=== PATIENT | female | born 1940 | race Caucasian/White ===

== ENCOUNTER 2016-09-17 12:08 | Inpatient (IN) | payer MEDICARE ==
[~2016-09-17] VITALS: Ht 165.1 cm; Wt 85.0 kg
[~2016-09-17 12:08] MED LIST: ASPI-891 PO; LEVO150T11 PO; LOSA50TA37 PO; METO50TA5 PO; MIRT15 PO
[2016-09-17] MEDS ORDERED: CARV3 PO (12:16)
[2016-09-17 13:08] LABS: HEMATOCRIT 48.1 % (36-46); HEMOGLOBIN 16.2 g/dL (12.0-16.0); MEAN CORPUSCULAR HEMOGLOBIN 31.2 pg (26.0-34.0); MEAN CORPUSCULAR HGB CONC 33.6 G/dL (31.0-37.0); MEAN CORPUSCULAR VOLUME 93 fL (80-100); PLATELET COUNT (AUTO) 270 K/uL (150-450); RED BLOOD CELL COUNT(AUTO) 5.18 MIL/uL (4.00-5.20); RED CELL DISTRIBUTION WIDTH 15.4 % (11.5-14.5); WHITE BLOOD COUNT (AUTO) 16.4 K/uL (4.5-11.0)
[2016-09-17 13:09] LABS: CALCIUM, TOTAL 9.6 mg/dL (8.8-10.5); CREATININE 1.8 mg/dL (0.60-1.30); POTASSIUM 4.8 mmol/L (3.5-5.1)
[2016-09-17 13:15] LABS: ALBUMIN 3.3 g/dL (3.4-5.0); BILIRUBIN,TOTAL 0.5 mg/dL (0.1-1.0); TOTAL PROTEIN, SERUM 7.7 g/dL (6.4-8.2)
[2016-09-17] MEDS ORDERED: SODIUM CHLORIDE 0.9% 1,000 ML IV ONE ×2 (13:15→14:15)
[2016-09-17 13:28] LABS: BAND NEUTROPHILS % (MANUAL) 12 % (1-5); LYMPHOCYTES % (MANUAL) 14 % (22-44); TOTAL CELLS COUNTED 100
[2016-09-17 14:03] LABS: CREATINE KINASE MB 107.5 ng/mL (0-5)
[2016-09-17] MEDS ORDERED: 0.9% SODIUM CHLORIDE 10 ML SYRINGE IVP PRN ×2 (15:15→19:30)
[2016-09-17] MEDS ORDERED: ONDANSETRON HCL 4 MG/2 ML VIAL IVP PRN ×2 (15:15→19:30)
[2016-09-17] MEDS ORDERED: ACETAMINOPHEN 325 MG TABLET PO PRN (15:15)
[2016-09-17 15:30] LABS: GLUCOSE,POINT OF CARE 108 MG/DL (70-110)
[2016-09-17 15:45] LABS: APPEARANCE,URINE TURBID (CLEAR); GLUCOSE, URINE (UA) NEGATIVE (NEGATIVE); KETONES,URINE TRACE mg/dL (NEGATIVE); LEUKOCYTE ESTERASE ,URINE LARGE (NEGATIVE); OCCULT BLOOD,URINE LARGE (NEGATIVE); PH,URINE 5.5 (5.0-8.0); PROTEIN,URINE SEE CONFIRM (NEGATIVE)
[2016-09-17 15:53] LABS: SULFOSALICYLIC ACID,URINE 1+ (Negative)
[2016-09-17 15:56] LABS: SQUAMOUS EPITHELIAL CELL,UR Few /LPF (None Seen)
[2016-09-17 15:57] LABS: RBC,URINE 26-50 /HPF (0-2); WBC,URINE >100 /HPF (0-5)
[2016-09-17] MEDS ORDERED: CefTRIAXone 1 GM/DEXTROSE 50 ML IV ONE (16:15)
[2016-09-17 17:20] VITALS: BP 121/67
[2016-09-17] MEDS ORDERED: PNEUMOCOCCAL VACCINE POLYVALENT 0.5 ML VIAL [PPSV23] IM ONE (19:00)
[2016-09-17] MEDS ORDERED: INFLUENZA VIRUS VACCINE QVS 2016-17 (3YR+)/PF 60 MCG/0.5 ML SYRINGE IM ONE (19:00)
[2016-09-17 19:41] VITALS: BP 136/67
[2016-09-17] MEDS: LOSARTAN POTASSIUM 50 MG TABLET PO SCH (20:31)
[2016-09-17] MEDS: OxyCODONE HCL/ACETAMINOPHEN 5-325 MG TABLET PO PRN (20:31)
[2016-09-17] MEDS: ASPIRIN 325 MG EC TABLET PO SCH (20:31)
[2016-09-17] MEDS: DOCUSATE SODIUM 100 MG CAPSULE PO SCH (20:31)
[2016-09-17] MEDS: CARVEDILOL 3.125 MG TABLET PO SCH (20:31)
[2016-09-17] MEDS: PANTOPRAZOLE SODIUM 40 MG/VIAL IVP SCH (20:31)
[2016-09-17] MEDS: SODIUM CHLORIDE 0.9% 1,000 ML IV SCH (20:32)
[2016-09-17] MEDS: METOPROLOL TARTRATE 50 MG TABLET PO SCH (20:32)
[2016-09-17] MEDS: CefTRIAXone 1 GM/DEXTROSE 50 ML IV SCH (20:41)
[2016-09-17 23:20] VITALS: BP 105/52
[2016-09-18] MEDS: SODIUM CHLORIDE 0.9% 1,000 ML IV SCH ×2 (03:00→15:52)
[2016-09-18 04:27] VITALS: BP 127/52
[2016-09-18] MEDS: LEVOTHYROXINE SODIUM 150 MCG TABLET PO SCH (06:18)
[2016-09-18 06:33] LABS: BASOPHILS % (AUTO) 0.2 % (0.0-2.0); EOSINOPHILS % (AUTO) 0.9 % (1.0-6.0); HEMATOCRIT 41.8 % (36-46); HEMOGLOBIN 14.1 g/dL (12.0-16.0); LYMPHOCYTES # (AUTO) 1.4 K/uL (1.0-4.8); MEAN CORPUSCULAR HEMOGLOBIN 31.4 pg (26.0-34.0); MEAN CORPUSCULAR HGB CONC 33.7 G/dL (31.0-37.0); MEAN CORPUSCULAR VOLUME 93 fL (80-100); MONOCYTES % (AUTO) 7.1 % (2.0-9.0); NEUTROPHILS # (AUTO) 11.1 K/uL (1.8-7.7); NEUTROPHILS % (AUTO) 81.8 % (40.0-70.0); PLATELET COUNT (AUTO) 240 K/uL (150-450); RED BLOOD CELL COUNT(AUTO) 4.48 MIL/uL (4.00-5.20); WHITE BLOOD COUNT (AUTO) 13.6 K/uL (4.5-11.0)
[2016-09-18 07:55] LABS: CALCIUM, TOTAL 8.5 mg/dL (8.8-10.5); CREATINE KINASE MB 29.7 ng/mL (0-5); CREATININE 1.65 mg/dL (0.60-1.30); POTASSIUM 4.4 mmol/L (3.5-5.1)
[2016-09-18 08:10] VITALS: BP 133/55
[2016-09-18] MEDS: METOPROLOL TARTRATE 50 MG TABLET PO SCH (09:02)
[2016-09-18] MEDS: CARVEDILOL 3.125 MG TABLET PO SCH ×2 (09:02→20:34)
[2016-09-18] MEDS: LOSARTAN POTASSIUM 50 MG TABLET PO SCH (09:03)
[2016-09-18] MEDS: DOCUSATE SODIUM 100 MG CAPSULE PO SCH ×2 (09:03→20:34)
[2016-09-18] MEDS: OxyCODONE HCL/ACETAMINOPHEN 5-325 MG TABLET PO PRN ×2 (09:03→20:34)
[2016-09-18] MEDS: ASPIRIN 325 MG EC TABLET PO SCH (09:03)
[2016-09-18] MEDS: PANTOPRAZOLE SODIUM 40 MG/VIAL IVP SCH (09:03)
[2016-09-18 11:17] VITALS: BP 117/59
[2016-09-18 15:34] VITALS: BP_SYST 149; BP_DIAS 64; BP_DIAS 99
[2016-09-18 20:21] VITALS: BP 140/84
[2016-09-18] MEDS: CefTRIAXone 1 GM/DEXTROSE 50 ML IV SCH (20:33)
[2016-09-18 23:41] VITALS: BP 142/74
[2016-09-19] MEDS: SODIUM CHLORIDE 0.9% 1,000 ML IV SCH ×2 (01:52→12:33)
[2016-09-19 04:43] VITALS: BP 138/78
[2016-09-19] MEDS: LEVOTHYROXINE SODIUM 150 MCG TABLET PO SCH (05:45)
[2016-09-19 07:04] VITALS: BP 143/56
[2016-09-19] MEDS: DOCUSATE SODIUM 100 MG CAPSULE PO SCH ×2 (09:00→20:09)
[2016-09-19] MEDS: METOPROLOL TARTRATE 50 MG TABLET PO SCH (09:09)
[2016-09-19] MEDS: LOSARTAN POTASSIUM 50 MG TABLET PO SCH (09:09)
[2016-09-19] MEDS: CARVEDILOL 3.125 MG TABLET PO SCH ×2 (09:09→20:09)
[2016-09-19] MEDS: ASPIRIN 325 MG EC TABLET PO SCH (09:09)
[2016-09-19] MEDS: OxyCODONE HCL/ACETAMINOPHEN 5-325 MG TABLET PO PRN ×2 (09:12→18:30)
[2016-09-19] MEDS: PANTOPRAZOLE SODIUM 40 MG/VIAL IVP SCH (09:36)
[2016-09-19 11:11] VITALS: BP 140/59
[2016-09-19 15:25] VITALS: BP 135/71
[2016-09-19 17:58] LABS: BASOPHILS % (AUTO) 0.3 % (0.0-2.0); EOSINOPHILS % (AUTO) 1.3 % (1.0-6.0); HEMATOCRIT 39.4 % (36-46); HEMOGLOBIN 13.2 g/dL (12.0-16.0); LYMPHOCYTES # (AUTO) 1.7 K/uL (1.0-4.8); LYMPHOCYTES % (AUTO) 20.4 % (22.0-44.0); MEAN CORPUSCULAR HEMOGLOBIN 31.2 pg (26.0-34.0); MEAN CORPUSCULAR HGB CONC 33.5 G/dL (31.0-37.0); MEAN CORPUSCULAR VOLUME 93 fL (80-100); MONOCYTES # (AUTO) 0.8 K/uL (0.1-1.0); MONOCYTES % (AUTO) 9.9 % (2.0-9.0); NEUTROPHILS # (AUTO) 5.8 K/uL (1.8-7.7); NEUTROPHILS % (AUTO) 68.1 % (40.0-70.0); PLATELET COUNT (AUTO) 290 K/uL (150-450); RED BLOOD CELL COUNT(AUTO) 4.23 MIL/uL (4.00-5.20); RED CELL DISTRIBUTION WIDTH 15.5 % (11.5-14.5); WHITE BLOOD COUNT (AUTO) 8.5 K/uL (4.5-11.0)
[2016-09-19 18:08] LABS: ANION GAP 8 mmol/L (8-16); CALCIUM, TOTAL 8.3 mg/dL (8.8-10.5); CARBON DIOXIDE 25 mmol/L (22-29); CHLORIDE 108 mmol/L (98-107); CREATININE 1.14 mg/dL (0.60-1.30); GLOMERULAR FILTR. RATE CALC 46 mL/min (>60); POTASSIUM 3.6 mmol/L (3.5-5.1); SODIUM SERUM 141 mmol/L (136-145); UREA NITROGEN, BLOOD 17 mg/dL (7-18)
[2016-09-19 18:34] LABS: ALANINE AMINOTRANSFERASE 44 U/L (12-78); ALBUMIN 2.4 g/dL (3.4-5.0); ASPARTATE AMINOTRANSFERASE 96 U/L (15-37); BILIRUBIN,TOTAL 0.1 mg/dL (0.1-1.0); CREATINE KINASE MB 3.5 ng/mL (0-5); CREATINE KINASE, TOTAL 1334 U/L (26-192); TOTAL PROTEIN, SERUM 6.1 g/dL (6.4-8.2)
[2016-09-19 19:36] VITALS: BP 134/52
[2016-09-19] MEDS ORDERED: BARIUM SULFATE 0.1% SUSPENSION 450 ML BOTTLE ONE (19:56)
[2016-09-19] MEDS: CefTRIAXone 1 GM/DEXTROSE 50 ML IV SCH (20:09)
[2016-09-19 23:40] VITALS: BP 140/78
[2016-09-20 04:21] VITALS: BP 137/66
[2016-09-20] MEDS: SODIUM CHLORIDE 0.9% 1,000 ML IV SCH ×2 (05:37→15:27)
[2016-09-20] MEDS: LEVOTHYROXINE SODIUM 150 MCG TABLET PO SCH (05:38)
[2016-09-20] MEDS: OxyCODONE HCL/ACETAMINOPHEN 5-325 MG TABLET PO PRN ×4 (05:44→21:21)
[2016-09-20 07:16] LABS: CREATINE KINASE MB 2.3 ng/mL (0-5); CREATINE KINASE, TOTAL 965 U/L (26-192)
[2016-09-20 07:29] VITALS: BP 175/86
[2016-09-20] MEDS: METOPROLOL TARTRATE 50 MG TABLET PO SCH (08:33)
[2016-09-20] MEDS: DOCUSATE SODIUM 100 MG CAPSULE PO SCH ×3 (08:33→21:00)
[2016-09-20] MEDS: ASPIRIN 325 MG EC TABLET PO SCH (08:33)
[2016-09-20] MEDS: LOSARTAN POTASSIUM 50 MG TABLET PO SCH (08:33)
[2016-09-20] MEDS: CARVEDILOL 3.125 MG TABLET PO SCH ×2 (08:33→21:20)
[2016-09-20] MEDS: PANTOPRAZOLE SODIUM 40 MG/VIAL IVP SCH (08:33)
[2016-09-20 11:10] VITALS: BP 141/72
[2016-09-20 15:55] VITALS: BP 157/73
[2016-09-20 20:46] VITALS: BP 168/77
[2016-09-20] MEDS: CefTRIAXone 1 GM/DEXTROSE 50 ML IV SCH (21:20)
[2016-09-20 23:51] VITALS: BP 123/67
[2016-09-21] VITALS (8 sets, daily range): BP systolic 147–218; BP diastolic 73–155
[2016-09-21] MEDS: OxyCODONE HCL/ACETAMINOPHEN 5-325 MG TABLET PO PRN ×4 (04:14→20:08)
[2016-09-21] MEDS: SODIUM CHLORIDE 0.9% 1,000 ML IV SCH (04:15)
[2016-09-21] MEDS: LEVOTHYROXINE SODIUM 150 MCG TABLET PO SCH (05:43)
[2016-09-21] MEDS: METOPROLOL TARTRATE 50 MG TABLET PO SCH (08:43)
[2016-09-21] MEDS: CARVEDILOL 3.125 MG TABLET PO SCH ×2 (08:43→20:08)
[2016-09-21] MEDS: LOSARTAN POTASSIUM 50 MG TABLET PO SCH (08:43)
[2016-09-21] MEDS: ASPIRIN 325 MG EC TABLET PO SCH (08:43)
[2016-09-21] MEDS: DOCUSATE SODIUM 100 MG CAPSULE PO SCH ×2 (08:44→21:00)
[2016-09-21] MEDS: PANTOPRAZOLE SODIUM 40 MG/VIAL IVP SCH (08:44)
[2016-09-21] MEDS ORDERED: PANT40TA25 PO (18:26)
[2016-09-21] MEDS ORDERED: DSS100 PO (18:26)
[2016-09-21] MEDS ORDERED: CEFX1I IV (18:26)
[2016-09-21] MEDS ORDERED: PERCT10 PO (18:26)
[2016-09-21] MEDS ORDERED: CloNIDine HCL 0.1 MG TABLET PO ONE (19:00)
[2016-09-21] MEDS ORDERED: CloNIDine HCL 0.1 MG TABLET ONE (19:01)
[2016-09-21] MEDS: CefTRIAXone 1 GM/DEXTROSE 50 ML IV SCH (20:07)
== END 2016-09-21 21:42 | DRG 871 ==
LOC: EMS 12:11 → 6N 15:11
PROVIDERS: ADMIT Internal Medicine; ATTEND Internal Medicine
PROC: 3E0234Z Introduction of Serum, Toxoid and Vaccine into Muscle, Percutaneous Approach (ICD-10-PCS; principal; 2016-09-21)
PROC: 3E0234Z Introduction of Serum, Toxoid and Vaccine into Muscle, Percutaneous Approach (ICD-10-PCS; 2016-09-21)
DX: A41.51 Sepsis due to Escherichia coli [E. coli] (principal); E43 Unspecified severe protein-calorie malnutrition; M62.82 Rhabdomyolysis; N39.0 Urinary tract infection, site not specified; N17.9 Acute kidney failure, unspecified; E03.9 Hypothyroidism, unspecified; E11.9 Type 2 diabetes mellitus without complications; E66.9 Obesity, unspecified; E86.0 Dehydration; F03.90 Unspecified dementia, unspecified severity, without behavioral disturbance, psychotic disturbance, mood disturbance, and anxiety; I10 Essential (primary) hypertension; R62.7 Adult failure to thrive; Z96.653 Presence of artificial knee joint, bilateral; F17.210 Nicotine dependence, cigarettes, uncomplicated; M19.90 Unspecified osteoarthritis, unspecified site; R15.9 Full incontinence of feces; S30.810A Abrasion of lower back and pelvis, initial encounter; X58.XXXA Exposure to other specified factors, initial encounter; R32 Unspecified urinary incontinence; Z68.31 Body mass index [BMI] 31.0-31.9, adult; Z79.899 Other long term (current) drug therapy; Z79.82 Long term (current) use of aspirin; Z86.73 Personal history of transient ischemic attack (TIA), and cerebral infarction without residual deficits; Z23 Encounter for immunization; Y93.89 Activity, other specified; Y92.89 Other specified places as the place of occurrence of the external cause; Y99.8 Other external cause status
CPT/HCPCS: 74176; 82948; 82962; 87040; 87086; 90471; 93005; 96360; 96361; 97161; 97530; 99285; C9113; J0696; J7030

== ENCOUNTER → 2018-06-14 | Outpatient (CLI) | payer MEDICARE, OTHER ==
[~2018-06-14] MED LIST changes: +CARV3 PO; +DSS100 PO; +LOSA50TA25 PO; -LOSA50TA37 PO; +METO50TA18 PO; -METO50TA5 PO; +PANT40TA25 PO; +PERCT10 PO
== END | disposition home or self-care (01) ==
LOC: RADPV 10:11
PROVIDERS: ATTEND Internal Medicine Cardiovascular Disease
DX: I50.1 Left ventricular failure, unspecified (principal); J44.9 Chronic obstructive pulmonary disease, unspecified; I25.10 Atherosclerotic heart disease of native coronary artery without angina pectoris; E78.00 Pure hypercholesterolemia, unspecified
CPT/HCPCS: 93306

== ENCOUNTER 2018-08-19 16:57 | Emergency (ER) | payer MEDICARE, OTHER ==
[~2018-08-19] VITALS: Ht 162.6 cm; Wt 79.5 kg
[~2018-08-19 16:57] MED LIST changes: -LOSA50TA25 PO; +LOSA50TA64 PO
[2018-08-19] MEDS ORDERED: TraMADol HCL 50 MG TABLET PO ONE (18:15)
[2018-08-19 18:50] LABS: BASOPHILS % (AUTO) 0.6 % (0.0-2.0); EOSINOPHILS % (AUTO) 1.2 % (1.0-6.0); HEMATOCRIT 49.6 % (36-46); HEMOGLOBIN 17.4 g/dL (12.0-16.0); LYMPHOCYTES # (AUTO) 2.3 K/uL (1.0-4.8); LYMPHOCYTES % (AUTO) 27.9 % (22.0-44.0); MEAN CORPUSCULAR HEMOGLOBIN 32.3 pg (26.0-34.0); MEAN CORPUSCULAR VOLUME 92 fL (80-100); MONOCYTES # (AUTO) 0.6 K/uL (0.1-1.0); MONOCYTES % (AUTO) 7.7 % (2.0-9.0); NEUTROPHILS # (AUTO) 5.2 K/uL (1.8-7.7); NEUTROPHILS % (AUTO) 62.6 % (40.0-70.0); PLATELET COUNT (AUTO) 292 K/uL (150-450); RED BLOOD CELL COUNT(AUTO) 5.39 MIL/uL (4.00-5.20); RED CELL DISTRIBUTION WIDTH 14.4 % (11.5-14.5)
[2018-08-19 18:54] LABS: CALCIUM, TOTAL 9.2 mg/dL (8.8-10.5); CREATININE 1.06 mg/dL (0.60-1.30); POTASSIUM 4.4 mmol/L (3.5-5.1)
[2018-08-19 21:23] VITALS: BP 144/87
== END 2018-08-19 21:30 | disposition home or self-care (01) ==
LOC: EMS 16:58
DX: G89.29 Other chronic pain (principal); M25.562 Pain in left knee; I10 Essential (primary) hypertension; E11.9 Type 2 diabetes mellitus without complications; E03.9 Hypothyroidism, unspecified; F17.210 Nicotine dependence, cigarettes, uncomplicated; Z79.82 Long term (current) use of aspirin; Z79.899 Other long term (current) drug therapy

== ENCOUNTER 2019-01-14 08:54 | Emergency (ER) | payer MEDICARE, OTHER ==
[~2019-01-14] VITALS: Ht 162.6 cm; Wt 82.8 kg
[2019-01-14 10:26] LABS: APPEARANCE,URINE TURBID (CLEAR); BILIRUBIN,URINE NEGATIVE (NEGATIVE); GLUCOSE, URINE (UA) >=1000 mg/dL (NEGATIVE); KETONES,URINE NEGATIVE (NEGATIVE); LEUKOCYTE ESTERASE ,URINE MODERATE (NEGATIVE); NITRATE,URINE POSITIVE (NEGATIVE); PH,URINE 5.5 (5.0-8.0); PROTEIN,URINE NEGATIVE (NEGATIVE); UROBILINOGEN,URINE 0.2 mg/dL (<=1.0)
[2019-01-14 10:34] LABS: OCCULT BLOOD,URINE SMALL (NEGATIVE)
[2019-01-14 10:35] LABS: BACTERIA,URINE Many /HPF (None Seen); WBC,URINE 26-50 /HPF (0-5); YEAST,URINE Many /HPF (None Seen)
[2019-01-14 11:00] LABS: EOSINOPHILS % (AUTO) 0.9 % (1.0-6.0); HEMATOCRIT 51.9 % (36-46); HEMOGLOBIN 17.5 g/dL (12.0-16.0); LYMPHOCYTES # (AUTO) 1.9 K/uL (1.0-4.8); LYMPHOCYTES % (AUTO) 20.8 % (22.0-44.0); MEAN CORPUSCULAR HEMOGLOBIN 32.1 pg (26.0-34.0); MEAN CORPUSCULAR HGB CONC 33.8 G/dL (31.0-37.0); MEAN CORPUSCULAR VOLUME 95 fL (80-100); MONOCYTES # (AUTO) 0.5 K/uL (0.1-1.0); MONOCYTES % (AUTO) 5.9 % (2.0-9.0); NEUTROPHILS # (AUTO) 6.6 K/uL (1.8-7.7); NEUTROPHILS % (AUTO) 71.4 % (40.0-70.0); PLATELET COUNT (AUTO) 247 K/uL (150-450); RED BLOOD CELL COUNT(AUTO) 5.47 MIL/uL (4.00-5.20); RED CELL DISTRIBUTION WIDTH 13.8 % (11.5-14.5)
[2019-01-14] MEDS ORDERED: CefTRIAXone 1 GM/DEXTROSE 50 ML IV ONE (11:30)
[2019-01-14 11:34] LABS: ALBUMIN 3.7 g/dL (3.4-5.0); BILIRUBIN,TOTAL 0.7 mg/dL (0.1-1.0); CALCIUM, TOTAL 9.2 mg/dL (8.8-10.5); CREATININE 1.08 mg/dL (0.60-1.30); POTASSIUM 4.3 mmol/L (3.5-5.1)
[2019-01-14 12:09] LABS: GLUCOSE,POINT OF CARE 506 MG/DL (70-110)
[2019-01-14] MEDS ORDERED: SODIUM CHLORIDE 0.9% 1,000 ML IV ONE (12:15)
[2019-01-14] MEDS ORDERED: INSULIN REGULAR, HUMAN 100 UNITS/ML SQ ONE (12:15)
[2019-01-14 13:54] LABS: GLUCOSE,POINT OF CARE 432 MG/DL (70-110)
[2019-01-14 14:30] VITALS: BP 154/76
== END 2019-01-14 15:15 | disposition home or self-care (01) ==
LOC: EMS 08:59
DX: N39.0 Urinary tract infection, site not specified (principal); E11.9 Type 2 diabetes mellitus without complications; F03.90 Unspecified dementia, unspecified severity, without behavioral disturbance, psychotic disturbance, mood disturbance, and anxiety; I10 Essential (primary) hypertension; E03.9 Hypothyroidism, unspecified; Z79.82 Long term (current) use of aspirin; Z79.899 Other long term (current) drug therapy
CPT/HCPCS: 36415; 80053; 81001; 82962; 85025; 87077; 87086; 87186; 96365; 96366; 96372; 99283; J0696; J1815; J7030

== ENCOUNTER 2020-03-28 19:44 | Emergency (ER) | payer MEDICARE, OTHER ==
[~2020-03-28] VITALS: Ht 157.5 cm; Wt 76.7 kg
[~2020-03-28 19:44] MED LIST changes: -ASPI-891 PO; +LOSA50TA37 PO; -LOSA50TA64 PO; -METO50TA18 PO; -MIRT15 PO; +PANT-31 PO; -PANT40TA25 PO; -PERCT10 PO
[2020-03-28] MEDS ORDERED: HYDROCODONE/ACETAMINOPHEN 5-325 MG TABLET PO ONE (20:15)
[2020-03-28] MEDS ORDERED: KETOROLAC TROMETHAMINE 30 MG/ML VIAL IM ONE (20:15)
[2020-03-28 22:00] VITALS: BP 152/77
== END 2020-03-28 22:10 | disposition home or self-care (01) ==
LOC: EMS 19:45
DX: R10.31 Right lower quadrant pain (principal); M79.18 Myalgia, other site; E11.9 Type 2 diabetes mellitus without complications; I10 Essential (primary) hypertension; F17.210 Nicotine dependence, cigarettes, uncomplicated; Z86.73 Personal history of transient ischemic attack (TIA), and cerebral infarction without residual deficits
CPT/HCPCS: 96372; 99283; J1885

== ENCOUNTER 2020-12-22 06:19 | Emergency (ER) | payer MEDICARE, OTHER ==
[~2020-12-22] VITALS: Ht 162.6 cm; Wt 80.6 kg
[2020-12-22] MEDS ORDERED: ONDANSETRON HCL 4 MG/2 ML VIAL IVP ONE (06:45)
[2020-12-22] MEDS ORDERED: SODIUM CHLORIDE 0.9% 1,000 ML IV ONE (06:45)
[2020-12-22 06:59] LABS: EOSINOPHILS % (AUTO) 1.4 % (1.0-6.0); HEMATOCRIT 42.9 % (36-46); HEMOGLOBIN 13.9 g/dL (12.0-16.0); LYMPHOCYTES # (AUTO) 1.3 K/uL (1.0-4.8); LYMPHOCYTES % (AUTO) 9.7 % (22.0-44.0); MEAN CORPUSCULAR HEMOGLOBIN 26.5 pg (26.0-34.0); MEAN CORPUSCULAR HGB CONC 32.5 G/dL (31.0-37.0); MEAN CORPUSCULAR VOLUME 82 fL (80-100); MONOCYTES # (AUTO) 0.7 K/uL (0.1-1.0); MONOCYTES % (AUTO) 4.9 % (2.0-9.0); NEUTROPHILS # (AUTO) 11.3 K/uL (1.8-7.7); PLATELET COUNT (AUTO) 378 K/uL (150-450); RED BLOOD CELL COUNT(AUTO) 5.26 MIL/uL (4.00-5.20); RED CELL DISTRIBUTION WIDTH 23.5 % (11.5-14.5)
[2020-12-22 07:51] LABS: CALCIUM, TOTAL 8.4 mg/dL (8.8-10.5); CREATININE 1.27 mg/dL (0.60-1.30); POTASSIUM 3.8 mmol/L (3.5-5.1)
[2020-12-22 07:57] LABS: ALBUMIN 3.7 g/dL (3.4-5.0); BILIRUBIN,TOTAL 0.3 mg/dL (0.1-1.0); TOTAL PROTEIN, SERUM 7.1 g/dL (6.4-8.2)
[2020-12-22] MEDS ORDERED: SODIUM CHLORIDE 0.9% 100 ML ONE (07:59)
[2020-12-22] MEDS ORDERED: IOHEXOL 350 MG/ML 100 ML VIAL ONE (07:59)
[2020-12-22] MEDS ORDERED: DICYCLOMINE HCL 20 MG TABLET PO ONE (08:30)
[2020-12-22] MEDS ORDERED: MORPHINE SULFATE 4 MG/ML SYRINGE IVP ONE (09:15)
[2020-12-22 10:16] VITALS: BP 160/84
== END 2020-12-22 11:10 | disposition home or self-care (01) ==
LOC: EMS 06:20
DX: R11.2 Nausea with vomiting, unspecified (principal); R10.13 Epigastric pain; E11.9 Type 2 diabetes mellitus without complications; I10 Essential (primary) hypertension; F17.210 Nicotine dependence, cigarettes, uncomplicated; Z86.73 Personal history of transient ischemic attack (TIA), and cerebral infarction without residual deficits
CPT/HCPCS: 36415; 74177; 80053; 83690; 84484; 85025; 93005; 96361; 96374; 96375; 99285; A9575; J2270; J2405; J7030; J7050

== ENCOUNTER 2022-03-10 19:50 | Emergency (ER) | payer MEDICARE, OTHER ==
[~2022-03-10] VITALS: Ht 167.6 cm; Wt 72.7 kg
[~2022-03-10 19:50] MED LIST changes: +LOSA-382 PO; -LOSA50TA37 PO
[2022-03-10] MEDS ORDERED: ACETAMINOPHEN 500 MG TABLET PO ONE (21:00)
[2022-03-10] MEDS ORDERED: CefTRIAXone 1 GM/DEXTROSE 50 ML IV ONE (21:00)
[2022-03-10] MEDS ORDERED: AZITHROMYCIN 500 MG/NS 250 ML IV ONE (21:00)
[2022-03-10 21:06] LABS: COVID AG,FIA SOURCE NASAL SWAB
[2022-03-10 21:13] LABS: BASOPHILS % (AUTO) 0.6 % (0.0-2.0); EOSINOPHILS % (AUTO) 1.7 % (1.0-6.0); HEMATOCRIT 38.9 % (36-46); HEMOGLOBIN 13.2 g/dL (12.0-16.0); LYMPHOCYTES % (AUTO) 37.3 % (22.0-44.0); MEAN CORPUSCULAR HEMOGLOBIN 31.4 pg (26.0-34.0); MEAN CORPUSCULAR HGB CONC 33.9 G/dL (31.0-37.0); MEAN CORPUSCULAR VOLUME 93 fL (80-100); MONOCYTES # (AUTO) 0.6 K/uL (0.1-1.0); MONOCYTES % (AUTO) 7.5 % (2.0-9.0); NEUTROPHILS # (AUTO) 4.2 K/uL (1.8-7.7); NEUTROPHILS % (AUTO) 52.9 % (40.0-70.0); PLATELET COUNT (AUTO) 281 K/uL (150-450)
[2022-03-10 21:35] LABS: INFLUENZA TYPE A NEGATIVE FOR TYPE A (NEGATIVE); INFLUENZA TYPE B NEGATIVE FOR TYPE B (NEGATIVE)
[2022-03-10 21:36] LABS: ALBUMIN 3.8 g/dL (3.4-5.0); BILIRUBIN,TOTAL 0.3 mg/dL (0.1-1.0); CALCIUM, TOTAL 9.3 mg/dL (8.8-10.5); CREATININE 1.76 mg/dL (0.60-1.30)
[2022-03-10 21:39] LABS: POTASSIUM 2.9 mmol/L (3.5-5.1)
[2022-03-10] MEDS ORDERED: ACETAMINOPHEN 325 MG TABLET PO PRN (21:45)
[2022-03-10] MEDS ORDERED: POTASSIUM CHLORIDE 20 MEQ ER TABLET PO ONE (21:45)
[2022-03-10] MEDS ORDERED: POTASSIUM CHLORIDE 10% 40 MEQ/30 ML LIQUID UDCUP PO ONE (21:45)
[2022-03-10] MEDS ORDERED: ONDANSETRON HCL 4 MG/2 ML VIAL IVP PRN (21:45)
[2022-03-10] MEDS ORDERED: AZIT250T9 PO (22:29)
[2022-03-11] MEDS ORDERED: HEPARIN SODIUM,PORCINE 5,000 UNITS/ML VIAL SQ SCH
[2022-03-11] MEDS ORDERED: AZIT250T9 PO (02:04)
[2022-03-11 02:24] VITALS: BP 136/89
[2022-03-11] MEDS ORDERED: DOCU-385 PO (13:13)
== END 2022-03-11 02:24 | disposition left against medical advice (07) ==
LOC: EMS 19:50
DX: R09.02 Hypoxemia (principal); E87.6 Hypokalemia; R29.6 Repeated falls; M19.90 Unspecified osteoarthritis, unspecified site; F03.90 Unspecified dementia, unspecified severity, without behavioral disturbance, psychotic disturbance, mood disturbance, and anxiety; E11.9 Type 2 diabetes mellitus without complications; I10 Essential (primary) hypertension; E03.9 Hypothyroidism, unspecified; F17.210 Nicotine dependence, cigarettes, uncomplicated; Z86.73 Personal history of transient ischemic attack (TIA), and cerebral infarction without residual deficits; Z96.653 Presence of artificial knee joint, bilateral; Z20.822 Contact with and (suspected) exposure to COVID-19
CPT/HCPCS: 99285; 70450; 96365; 71045; 96366; 87426; 80053; 84484; 85025; 87040; 87804; 36415; 72125; 96368; J0456; J0696; 96367

== ENCOUNTER 2022-12-07 10:25 | Emergency (ER) | payer MEDICARE, OTHER ==
[~2022-12-07] VITALS: Ht 162.6 cm; Wt 86.4 kg
[~2022-12-07 10:25] MED LIST changes: +DOCU-385 PO; -DSS100 PO
[2022-12-07] MEDS ORDERED: TraMADol HCL 50 MG TABLET PO ONE (10:45)
[2022-12-07 13:56] VITALS: BP 136/75
== END 2022-12-07 14:09 | disposition home or self-care (01) ==
LOC: EMS 10:30
DX: S80.02XA Contusion of left knee, initial encounter (principal); G89.29 Other chronic pain; M19.90 Unspecified osteoarthritis, unspecified site; E11.9 Type 2 diabetes mellitus without complications; I10 Essential (primary) hypertension; E03.9 Hypothyroidism, unspecified; F03.90 Unspecified dementia, unspecified severity, without behavioral disturbance, psychotic disturbance, mood disturbance, and anxiety; F17.210 Nicotine dependence, cigarettes, uncomplicated; Z96.659 Presence of unspecified artificial knee joint; W19.XXXA Unspecified fall, initial encounter; Y93.89 Activity, other specified; Y92.89 Other specified places as the place of occurrence of the external cause; Y99.8 Other external cause status
CPT/HCPCS: 99283

== ENCOUNTER 2022-12-17 13:04 | Inpatient (IN) | payer MEDICARE, OTHER ==
[~2022-12-17] VITALS: Ht 165.1 cm; Wt 87.5 kg
[~2022-12-17 13:04] MED LIST changes: -CARV3 PO; -LOSA-382 PO
[2022-12-17] MEDS ORDERED: FLUT1DIS6 IH (13:30)
[2022-12-17] MEDS ORDERED: LORA10TA7 PO (13:30)
[2022-12-17] MEDS ORDERED: MELA5TAB40 PO (13:30)
[2022-12-17] MEDS ORDERED: HYDROmorphone HCL 2 MG/ML SYRINGE IVP ONE ×2 (13:30→18:15)
[2022-12-17] MEDS ORDERED: ALBU18HF12 PO (13:30)
[2022-12-17] MEDS ORDERED: DICL100G31 TP (13:30)
[2022-12-17] MEDS ORDERED: ASPI-1522 PO (13:30)
[2022-12-17] MEDS ORDERED: MULT1TAB67 PO (13:30)
[2022-12-17] MEDS ORDERED: CHOL500045 PO (13:30)
[2022-12-17] MEDS ORDERED: FURO20TA4 PO (13:30)
[2022-12-17] MEDS ORDERED: LEVO100 PO (13:30)
[2022-12-17] MEDS ORDERED: ATOR40TA71 PO (13:30)
[2022-12-17] MEDS ORDERED: QUET25TA36 PO (13:30)
[2022-12-17] MEDS ORDERED: SODIUM CHLORIDE 0.9% 1,000 ML IV ONE (13:30)
[2022-12-17] MEDS ORDERED: SERT-439 PO (13:30)
[2022-12-17] MEDS ORDERED: ONDANSETRON HCL 4 MG/2 ML VIAL IVP ONE (13:30)
[2022-12-17 13:46] LABS: BASOPHILS % (AUTO) 0.5 % (0.0-2.0); EOSINOPHILS % (AUTO) 2.1 % (1.0-6.0); HEMATOCRIT 24.9 % (36-46); LYMPHOCYTES # (AUTO) 1.5 K/uL (1.0-4.8); LYMPHOCYTES % (AUTO) 27.2 % (22.0-44.0); MEAN CORPUSCULAR HEMOGLOBIN 23.8 pg (26.0-34.0); MEAN CORPUSCULAR VOLUME 74 fL (80-100); MONOCYTES # (AUTO) 0.4 K/uL (0.1-1.0); MONOCYTES % (AUTO) 7.8 % (2.0-9.0); NEUTROPHILS # (AUTO) 3.6 K/uL (1.8-7.7); NEUTROPHILS % (AUTO) 62.4 % (40.0-70.0); PLATELET COUNT (AUTO) 409 K/uL (150-450); RED BLOOD CELL COUNT(AUTO) 3.34 MIL/uL (4.00-5.20); RED CELL DISTRIBUTION WIDTH 17.4 % (11.5-14.5)
[2022-12-17 13:46] LABS: GLUCOMETER DEV NAME(LOC) ERT.5; GLUCOSE,POINT OF CARE 126 MG/DL (70-110)
[2022-12-17 13:57] LABS: CALCIUM, TOTAL 9.1 mg/dL (8.8-10.5); CREATININE 1.33 mg/dL (0.60-1.30); POTASSIUM 4.3 mmol/L (3.5-5.1)
[2022-12-17 14:03] LABS: ALBUMIN 3.8 g/dL (3.4-5.0); BILIRUBIN,TOTAL 0.3 mg/dL (0.1-1.0); TOTAL PROTEIN, SERUM 7.3 g/dL (6.4-8.2)
[2022-12-17 14:05] LABS: LACTIC ACID 0.8 mmol/L (0.4-2.0)
[2022-12-17 16:05] LABS: COVID AG,FIA SOURCE NASAL SWAB
[2022-12-17 16:20] LABS: APPEARANCE,URINE CLEAR (CLEAR); BILIRUBIN,URINE NEGATIVE (NEGATIVE); GLUCOSE, URINE (UA) NEGATIVE (NEGATIVE); KETONES,URINE NEGATIVE (NEGATIVE); LEUKOCYTE ESTERASE ,URINE NEGATIVE (NEGATIVE); NITRATE,URINE POSITIVE (NEGATIVE); OCCULT BLOOD,URINE NEGATIVE (NEGATIVE); PROTEIN,URINE NEGATIVE (NEGATIVE); SPECIFIC GRAVITIY, URINE 1.015 (1.003-1.030); UROBILINOGEN,URINE <=1.0 mg/dL (<=1.0)
[2022-12-17 16:28] LABS: SQUAMOUS EPITHELIAL CELL,UR Few /LPF (None Seen)
[2022-12-17 16:29] LABS: BACTERIA,URINE Many /HPF (None Seen); RBC,URINE None Seen /HPF (0-2)
[2022-12-17] MEDS ORDERED: BISACODYL 10 MG RECTAL RECTAL SUPPOSITORY PR ONE (18:15)
[2022-12-17] MEDS ORDERED: PEG 3350/NA SULF,BICARB,CL/KCL 4000 ML SOLUTION PO ONE (18:45)
[2022-12-17] MEDS ORDERED: SODIUM PHOS/SODIUM BIPHOS 133 ML ENEMA PR ONE (20:15)
[2022-12-17 20:52] VITALS: BP 120/47
[2022-12-17] MEDS ORDERED: ONDANSETRON HCL 4 MG/2 ML VIAL IVP PRN (21:45)
[2022-12-17] MEDS ORDERED: MAGNESIUM HYDROXIDE SUSPENSION 30 ML UDCUP PO PRN (21:45)
[2022-12-17] MEDS ORDERED: ACETAMINOPHEN 325 MG TABLET PO PRN (21:45)
[2022-12-17] MEDS ORDERED: ZOLPIDEM TARTRATE 5 MG TABLET PO PRN (21:45)
[2022-12-17] MEDS ORDERED: BISACODYL 10 MG RECTAL RECTAL SUPPOSITORY PR PRN (21:45)
[2022-12-17] MEDS ORDERED: MELATONIN 5 MG TABLET PO PRN (21:45)
[2022-12-17] MEDS: MORPHINE SULFATE 2 MG/ML SYRINGE IVP PRN (22:20)
[2022-12-18] MEDS: ALBUTEROL SULFATE HFA 90 MCG/PUFF 8 GM INHALER IH SCH ×4 (00:06→19:02)
[2022-12-18] MEDS: FLUTICASONE/VILANTEROL 200-25 MCG/INH INHALER [14] IH SCH ×2 (00:06→19:01)
[2022-12-18] MEDS: HEPARIN SODIUM,PORCINE 5,000 UNITS/ML VIAL SQ SCH ×3 (00:06→16:28)
[2022-12-18 00:25] VITALS: BP 107/45
[2022-12-18] MEDS: MORPHINE SULFATE 2 MG/ML SYRINGE IVP PRN ×3 (02:38→20:04)
[2022-12-18 05:54] LABS: BASOPHILS % (AUTO) 0.4 % (0.0-2.0); EOSINOPHILS % (AUTO) 1.5 % (1.0-6.0); HEMATOCRIT 22.6 % (36-46); LYMPHOCYTES # (AUTO) 1.8 K/uL (1.0-4.8); LYMPHOCYTES % (AUTO) 24.4 % (22.0-44.0); MEAN CORPUSCULAR HEMOGLOBIN 23.2 pg (26.0-34.0); MEAN CORPUSCULAR HGB CONC 30.8 G/dL (31.0-37.0); MEAN CORPUSCULAR VOLUME 75 fL (80-100); MONOCYTES # (AUTO) 0.6 K/uL (0.1-1.0); MONOCYTES % (AUTO) 8.3 % (2.0-9.0); NEUTROPHILS # (AUTO) 4.9 K/uL (1.8-7.7); NEUTROPHILS % (AUTO) 65.4 % (40.0-70.0); PLATELET COUNT (AUTO) 377 K/uL (150-450); RED CELL DISTRIBUTION WIDTH 17.7 % (11.5-14.5)
[2022-12-18 06:02] LABS: CALCIUM, TOTAL 8.4 mg/dL (8.8-10.5); CREATININE 1.05 mg/dL (0.60-1.30)
[2022-12-18] MEDS: LEVOTHYROXINE SODIUM 100 MCG TABLET PO SCH (06:08)
[2022-12-18 06:30] VITALS: BP 126/48
[2022-12-18 07:26] LABS: GLUCOMETER DEV NAME(LOC) 5N.1C; GLUCOSE,POINT OF CARE 95 MG/DL (70-110)
[2022-12-18 07:41] VITALS: BP 135/58
[2022-12-18] MEDS: LORATADINE 10 MG TABLET PO SCH (09:00)
[2022-12-18] MEDS: ASPIRIN 81 MG DR TABLET PO SCH (09:00)
[2022-12-18] MEDS: FUROSEMIDE 20 MG TABLET PO SCH (09:00)
[2022-12-18] MEDS: BISACODYL 10 MG RECTAL RECTAL SUPPOSITORY PR SCH (09:00)
[2022-12-18] MEDS: MULTIVITAMINS, THERAPEUTIC TABLET PO SCH (09:00)
[2022-12-18] MEDS: DOCUSATE SODIUM 100 MG CAPSULE PO SCH ×2 (09:00→20:04)
[2022-12-18] MEDS: PANTOPRAZOLE SODIUM 40 MG DR TABLET PO SCH (09:00)
[2022-12-18] MEDS ORDERED: SODIUM CHLORIDE 0.9% 1,000 ML ONE (10:51)
[2022-12-18] MEDS ORDERED: ACETAMINOPHEN 325 MG TABLET ONE (13:22)
[2022-12-18] MEDS ORDERED: SODIUM CHLORIDE 0.9% 1,000 ML IV ONE (13:30)
[2022-12-18 14:40] VITALS: BP 127/62
[2022-12-18] MEDS ORDERED: SODIUM CHLORIDE 0.9% 100 ML ONE (15:25)
[2022-12-18] MEDS ORDERED: IOHEXOL 350 MG/ML 100 ML VIAL ONE (15:25)
[2022-12-18] MEDS: HYDROCODONE/ACETAMINOPHEN 5-325 MG TABLET PO PRN (19:01)
[2022-12-18 19:52] VITALS: BP 137/57
[2022-12-18] MEDS: ATORVASTATIN CALCIUM 40 MG TABLET PO SCH (20:04)
[2022-12-18 23:17] VITALS: BP 120/70
[2022-12-19] MEDS: HEPARIN SODIUM,PORCINE 5,000 UNITS/ML VIAL SQ SCH ×4 (00:15→23:34)
[2022-12-19] MEDS: ALBUTEROL SULFATE HFA 90 MCG/PUFF 8 GM INHALER IH SCH ×5 (00:15→23:35)
[2022-12-19] MEDS: MORPHINE SULFATE 2 MG/ML SYRINGE IVP PRN ×5 (00:18→23:35)
[2022-12-19 04:43] VITALS: BP 127/62
[2022-12-19] MEDS ORDERED: PROPOFOL 1% 20 ML VIAL IVP ONE (05:51)
[2022-12-19] MEDS ORDERED: LIDOCAINE/PF 2% 5 ML SYRINGE IVP ONE (05:51)
[2022-12-19] MEDS: LEVOTHYROXINE SODIUM 100 MCG TABLET PO SCH (05:56)
[2022-12-19 07:38] LABS: BASOPHILS % (AUTO) 0.4 % (0.0-2.0); EOSINOPHILS % (AUTO) 2.2 % (1.0-6.0); LYMPHOCYTES # (AUTO) 1.5 K/uL (1.0-4.8); LYMPHOCYTES % (AUTO) 21.6 % (22.0-44.0); MEAN CORPUSCULAR HEMOGLOBIN 23.2 pg (26.0-34.0); MEAN CORPUSCULAR HGB CONC 30.6 G/dL (31.0-37.0); MEAN CORPUSCULAR VOLUME 76 fL (80-100); MONOCYTES # (AUTO) 0.7 K/uL (0.1-1.0); MONOCYTES % (AUTO) 10.5 % (2.0-9.0); NEUTROPHILS # (AUTO) 4.6 K/uL (1.8-7.7); NEUTROPHILS % (AUTO) 65.3 % (40.0-70.0); PLATELET COUNT (AUTO) 357 K/uL (150-450); RED BLOOD CELL COUNT(AUTO) 3.04 MIL/uL (4.00-5.20); RED CELL DISTRIBUTION WIDTH 17.2 % (11.5-14.5)
[2022-12-19 07:49] LABS: CALCIUM, TOTAL 8.1 mg/dL (8.8-10.5); CREATININE 0.94 mg/dL (0.60-1.30); POTASSIUM 3.3 mmol/L (3.5-5.1)
[2022-12-19 08:05] VITALS: BP 130/87
[2022-12-19] MEDS: LORATADINE 10 MG TABLET PO SCH (08:34)
[2022-12-19] MEDS: FUROSEMIDE 20 MG TABLET PO SCH (08:34)
[2022-12-19] MEDS: DOCUSATE SODIUM 100 MG CAPSULE PO SCH ×2 (08:34→20:31)
[2022-12-19] MEDS: PANTOPRAZOLE SODIUM 40 MG DR TABLET PO SCH (08:34)
[2022-12-19] MEDS: ASPIRIN 81 MG DR TABLET PO SCH (08:34)
[2022-12-19] MEDS: MULTIVITAMINS, THERAPEUTIC TABLET PO SCH (08:34)
[2022-12-19] MEDS ORDERED: DIGOXIN 250 MCG/ML 2 ML AMP IVP ONE (09:00)
[2022-12-19] MEDS: BISACODYL 10 MG RECTAL RECTAL SUPPOSITORY PR SCH (09:00)
[2022-12-19] MEDS ORDERED: POTASSIUM CHLORIDE 20 MEQ ER TABLET PO ONE (09:00)
[2022-12-19 11:40] VITALS: BP 123/90
[2022-12-19] MEDS: HYDROCODONE/ACETAMINOPHEN 5-325 MG TABLET PO PRN ×2 (14:51→20:32)
[2022-12-19 16:15] VITALS: BP 127/74
[2022-12-19 19:41] VITALS: BP 133/51
[2022-12-19] MEDS: ATORVASTATIN CALCIUM 40 MG TABLET PO SCH (20:31)
[2022-12-19] MEDS: FLUTICASONE/VILANTEROL 200-25 MCG/INH INHALER [14] IH SCH (20:32)
[2022-12-19 23:18] VITALS: BP 128/52
[2022-12-20 04:03] VITALS: BP 157/69
[2022-12-20] MEDS: LEVOTHYROXINE SODIUM 100 MCG TABLET PO SCH (05:30)
[2022-12-20] MEDS: ALBUTEROL SULFATE HFA 90 MCG/PUFF 8 GM INHALER IH SCH ×2 (05:30→12:08)
[2022-12-20] MEDS: MORPHINE SULFATE 2 MG/ML SYRINGE IVP PRN ×2 (05:34→10:24)
[2022-12-20 06:21] LABS: BASOPHILS % (AUTO) 0.7 % (0.0-2.0); EOSINOPHILS % (AUTO) 3.6 % (1.0-6.0); HEMATOCRIT 22.7 % (36-46); HEMOGLOBIN 7.1 g/dL (12.0-16.0); LYMPHOCYTES # (AUTO) 1.5 K/uL (1.0-4.8); MEAN CORPUSCULAR HEMOGLOBIN 23.5 pg (26.0-34.0); MEAN CORPUSCULAR HGB CONC 31.4 G/dL (31.0-37.0); MEAN CORPUSCULAR VOLUME 75 fL (80-100); MONOCYTES # (AUTO) 0.7 K/uL (0.1-1.0); MONOCYTES % (AUTO) 9.5 % (2.0-9.0); NEUTROPHILS # (AUTO) 4.4 K/uL (1.8-7.7); NEUTROPHILS % (AUTO) 64.2 % (40.0-70.0); PLATELET COUNT (AUTO) 309 K/uL (150-450); RED BLOOD CELL COUNT(AUTO) 3.04 MIL/uL (4.00-5.20); RED CELL DISTRIBUTION WIDTH 17.6 % (11.5-14.5)
[2022-12-20 07:01] LABS: CALCIUM, TOTAL 8.4 mg/dL (8.8-10.5); CREATININE 1.03 mg/dL (0.60-1.30); POTASSIUM 3.6 mmol/L (3.5-5.1)
[2022-12-20 07:40] VITALS: BP 155/81
[2022-12-20] MEDS: FUROSEMIDE 20 MG TABLET PO SCH (08:15)
[2022-12-20] MEDS: MULTIVITAMINS, THERAPEUTIC TABLET PO SCH (08:15)
[2022-12-20] MEDS: LORATADINE 10 MG TABLET PO SCH (08:15)
[2022-12-20] MEDS: PANTOPRAZOLE SODIUM 40 MG DR TABLET PO SCH (08:15)
[2022-12-20] MEDS: DOCUSATE SODIUM 100 MG CAPSULE PO SCH (08:15)
[2022-12-20] MEDS: ASPIRIN 81 MG DR TABLET PO SCH (08:15)
[2022-12-20] MEDS: HEPARIN SODIUM,PORCINE 5,000 UNITS/ML VIAL SQ SCH (08:15)
[2022-12-20] MEDS: BISACODYL 10 MG RECTAL RECTAL SUPPOSITORY PR SCH (08:16)
[2022-12-20] MEDS: HYDROCODONE/ACETAMINOPHEN 5-325 MG TABLET PO PRN ×2 (08:16→12:08)
[2022-12-20 11:18] VITALS: BP 121/67
== END 2022-12-20 15:21 | disposition hospice, home (50) | DRG 374 ==
LOC: EMS 13:04 → 5S 18:48
PROVIDERS: ADMIT Internal Medicine; ATTEND Internal Medicine
PROC: 0DBL8ZX Excision of Transverse Colon, Via Natural or Artificial Opening Endoscopic, Diagnostic (ICD-10-PCS; principal; 2022-12-18 12:30)
DX: C18.4 Malignant neoplasm of transverse colon (principal); K63.1 Perforation of intestine (nontraumatic); N17.0 Acute kidney failure with tubular necrosis; E11.9 Type 2 diabetes mellitus without complications; F03.90 Unspecified dementia, unspecified severity, without behavioral disturbance, psychotic disturbance, mood disturbance, and anxiety; I11.0 Hypertensive heart disease with heart failure; E03.9 Hypothyroidism, unspecified; J45.909 Unspecified asthma, uncomplicated; E86.0 Dehydration; K57.30 Diverticulosis of large intestine without perforation or abscess without bleeding; M19.09 Primary osteoarthritis, other specified site; Z79.899 Other long term (current) drug therapy; D50.9 Iron deficiency anemia, unspecified; E78.5 Hyperlipidemia, unspecified; I50.9 Heart failure, unspecified; Z96.653 Presence of artificial knee joint, bilateral; K40.90 Unilateral inguinal hernia, without obstruction or gangrene, not specified as recurrent; K59.00 Constipation, unspecified; Z51.5 Encounter for palliative care; Z79.82 Long term (current) use of aspirin; Z86.73 Personal history of transient ischemic attack (TIA), and cerebral infarction without residual deficits; Z87.891 Personal history of nicotine dependence; Z90.49 Acquired absence of other specified parts of digestive tract; Z90.710 Acquired absence of both cervix and uterus; Z20.822 Contact with and (suspected) exposure to COVID-19
CPT/HCPCS: 71045; 74176; 74177; 80048; 80053; 81001; 82962; 83605; 83690; 84132; 84484; 85025; 87081; 87086; 87186; 93005; 99285; J1160; J1170; J1644; J2270; J2405; J2704; J3490; J3535; J7030; J7050; Q9967; 36415-L1; 36415-TC; Z7610

== ENCOUNTER 2023-02-23 23:11 | Inpatient (IN) | payer OTHER ==
[~2023-02-23] VITALS: Ht 157.5 cm; Wt 79.6 kg
[~2023-02-23 23:11] MED LIST changes: +ASPI-1522 PO; +ATOR40TA71 PO; +CHOL500045 PO; +DICL100G31 TP; -DOCU-385 PO; +FLUT1DIS6 IH; +FURO20TA4 PO; +LEVO100 PO; -LEVO150T11 PO; +LORA10TA7 PO; +MELA5TAB40 PO; +MULT1TAB67 PO; -PANT-31 PO; +QUET25TA36 PO; +SERT-439 PO
[2023-02-23] MEDS ORDERED: MORPHINE SULFATE 2 MG/ML SYRINGE IVP ONE (23:30)
[2023-02-23] MEDS ORDERED: SODIUM CHLORIDE 0.9% 1,000 ML IV ONE (23:30)
[2023-02-23] MEDS ORDERED: ONDANSETRON HCL 4 MG/2 ML VIAL IVP ONE (23:30)
[2023-02-24 00:11] LABS: CALCIUM, TOTAL 9.4 mg/dL (8.8-10.5); CREATININE 1.23 mg/dL (0.60-1.30); MEAN CORPUSCULAR HEMOGLOBIN 21.4 pg (26.0-34.0); MONOCYTES # (AUTO) 0.6 K/uL (0.1-1.0); POTASSIUM 4.2 mmol/L (3.5-5.1); RED CELL DISTRIBUTION WIDTH 18.4 % (11.5-14.5)
[2023-02-24] MEDS ORDERED: DILTIAZEM HCL 5 MG/ML 5 ML VIAL IVP ONE ×2 (00:15→01:00)
[2023-02-24 00:16] LABS: BASOPHILS % (AUTO) 0.3 % (0.0-2.0); EOSINOPHILS % (AUTO) 0.7 % (1.0-6.0); HEMATOCRIT 30.8 % (36-46); HEMOGLOBIN 9.4 g/dL (12.0-16.0); LYMPHOCYTES # (AUTO) 1.4 K/uL (1.0-4.8); MEAN CORPUSCULAR HGB CONC 30.5 G/dL (31.0-37.0); MEAN CORPUSCULAR VOLUME 70 fL (80-100); MONOCYTES % (AUTO) 6.1 % (2.0-9.0); NEUTROPHILS # (AUTO) 8.5 K/uL (1.8-7.7); NEUTROPHILS % (AUTO) 79.9 % (40.0-70.0); PLATELET COUNT (AUTO) 425 K/uL (150-450)
[2023-02-24 00:17] LABS: ALBUMIN 3.5 g/dL (3.4-5.0); BILIRUBIN,TOTAL 0.3 mg/dL (0.1-1.0); TOTAL PROTEIN, SERUM 7.2 g/dL (6.4-8.2)
[2023-02-24 00:53] LABS: MAGNESIUM 2.2 mg/dL (1.80-2.40); PHOSPHORUS 3.6 mg/dL (2.5-4.9)
[2023-02-24 02:52] LABS: APPEARANCE,URINE CLEAR (CLEAR); BILIRUBIN,URINE NEGATIVE (NEGATIVE); GLUCOSE, URINE (UA) NEGATIVE (NEGATIVE); KETONES,URINE NEGATIVE (NEGATIVE); LEUKOCYTE ESTERASE ,URINE NEGATIVE (NEGATIVE); NITRATE,URINE POSITIVE (NEGATIVE); OCCULT BLOOD,URINE NEGATIVE (NEGATIVE); PROTEIN,URINE NEGATIVE (NEGATIVE); SPECIFIC GRAVITIY, URINE 1.028 (1.003-1.030); UROBILINOGEN,URINE <=1.0 mg/dL (<=1.0)
[2023-02-24 03:02] VITALS: O2SAT 96
[2023-02-24] MEDS ORDERED: ONDANSETRON HCL 4 MG/2 ML VIAL IVP PRN (03:15)
[2023-02-24] MEDS ORDERED: 0.9% SODIUM CHLORIDE 10 ML SYRINGE IVP PRN (03:15)
[2023-02-24] MEDS ORDERED: ACETAMINOPHEN 325 MG TABLET PO PRN (03:15)
[2023-02-24 03:38] LABS: BACTERIA,URINE Many /HPF (None Seen); RBC,URINE 0-2 /HPF (0-2); SQUAMOUS EPITHELIAL CELL,UR Few /LPF (None Seen)
[2023-02-24] MEDS ORDERED: AMIODARONE HCL 360 MG in DEXTROSE 5%-WATER 242.8 ML IV ONE ×2 (07:30→18:45)
[2023-02-24] MEDS ORDERED: AMIODARONE HCL 150 MG in DEXTROSE 5%-WATER 97 ML IV ONE ×2 (07:30→18:45)
[2023-02-24 09:43] VITALS: BP 121/77; PULSE 130; RESP 19; TEMP 98.1
[2023-02-24 11:21] VITALS: BP 100/49; PULSE 111; RESP 19; TEMP 98.1
[2023-02-24] MEDS ORDERED: AMIODARONE HCL 540 MG in DEXTROSE 5%-WATER 239.2 ML IV ONE (13:30)
[2023-02-24 15:35] VITALS: BP 107/61; PULSE 134; RESP 18; TEMP 98.3
[2023-02-24] MEDS ORDERED: MELATONIN 5 MG TABLET PO PRN (18:45)
[2023-02-24] MEDS ORDERED: HEPARIN SODIUM,PORCINE 5,000 UNITS/ML VIAL IVP PRN ×2 (18:45)
[2023-02-24] MEDS ORDERED: HEPARIN SODIUM,PORCINE 5,000 UNITS/ML VIAL IVP ONE (18:45)
[2023-02-24 19:55] VITALS: BP 98/46; PULSE 98; RESP 20; TEMP 98.3
[2023-02-24 20:30] LABS: BASOPHILS % (AUTO) 0.4 % (0.0-2.0); EOSINOPHILS % (AUTO) 2.5 % (1.0-6.0); HEMATOCRIT 28.1 % (36-46); HEMOGLOBIN 8.4 g/dL (12.0-16.0); LYMPHOCYTES # (AUTO) 1.2 K/uL (1.0-4.8); LYMPHOCYTES % (AUTO) 13.3 % (22.0-44.0); MEAN CORPUSCULAR HEMOGLOBIN 21.3 pg (26.0-34.0); MEAN CORPUSCULAR HGB CONC 29.9 G/dL (31.0-37.0); MEAN CORPUSCULAR VOLUME 71 fL (80-100); MONOCYTES # (AUTO) 0.6 K/uL (0.1-1.0); MONOCYTES % (AUTO) 7.2 % (2.0-9.0); NEUTROPHILS # (AUTO) 6.8 K/uL (1.8-7.7); NEUTROPHILS % (AUTO) 76.6 % (40.0-70.0); PLATELET COUNT (AUTO) 368 K/uL (150-450); RED BLOOD CELL COUNT(AUTO) 3.94 MIL/uL (4.00-5.20)
[2023-02-24 20:49] LABS: PROTHROMBIN TIME 10.6 SEC (9.4-11.6)
[2023-02-24] MEDS: QUEtiapine FUMARATE 25 MG TABLET PO SCH (21:00)
[2023-02-24 23:31] VITALS: BP 103/52; PULSE 142; RESP 20; TEMP 100
[2023-02-24] MEDS: MORPHINE SULFATE 2 MG/ML SYRINGE IVP PRN (23:35)
[2023-02-25] VITALS (9 sets, daily range): BP systolic 98–138; BP diastolic 57–68; PULSE 111–133; RESP 16–19; TEMP 97.7–98.3; O2SAT 96
[2023-02-25] MEDS: ACETAMINOPHEN 325 MG TABLET PO PRN ×2 (00:37→09:13)
[2023-02-25] MEDS: ATORVASTATIN CALCIUM 40 MG TABLET PO SCH ×2 (00:38→20:50)
[2023-02-25] MEDS ORDERED: AMIODARONE HCL 540 MG in DEXTROSE 5%-WATER 239.2 ML IV ONE (00:45)
[2023-02-25] MEDS: HEPARIN SODIUM 25000 UNITS/D5W 250 ML IV PRN (01:37)
[2023-02-25] MEDS ORDERED: DIGOXIN 250 MCG/ML 2 ML AMP IVP ONE (04:30)
[2023-02-25] MEDS: LEVOTHYROXINE SODIUM 100 MCG TABLET PO SCH (06:27)
[2023-02-25 06:42] LABS: BASOPHILS % (AUTO) 0.4 % (0.0-2.0); EOSINOPHILS % (AUTO) 3.1 % (1.0-6.0); HEMATOCRIT 25.8 % (36-46); LYMPHOCYTES # (AUTO) 2.4 K/uL (1.0-4.8); LYMPHOCYTES % (AUTO) 30.8 % (22.0-44.0); MEAN CORPUSCULAR HEMOGLOBIN 21.9 pg (26.0-34.0); MEAN CORPUSCULAR VOLUME 71 fL (80-100); MONOCYTES # (AUTO) 0.6 K/uL (0.1-1.0); MONOCYTES % (AUTO) 8.2 % (2.0-9.0); NEUTROPHILS # (AUTO) 4.5 K/uL (1.8-7.7); NEUTROPHILS % (AUTO) 57.5 % (40.0-70.0); PLATELET COUNT (AUTO) 356 K/uL (150-450); RED BLOOD CELL COUNT(AUTO) 3.64 MIL/uL (4.00-5.20); RED CELL DISTRIBUTION WIDTH 18.2 % (11.5-14.5)
[2023-02-25 07:23] LABS: ALBUMIN 2.8 g/dL (3.4-5.0); BILIRUBIN,TOTAL 0.3 mg/dL (0.1-1.0); CALCIUM, TOTAL 8.5 mg/dL (8.8-10.5); CREATININE 1.17 mg/dL (0.60-1.30); POTASSIUM 3.9 mmol/L (3.5-5.1); TOTAL PROTEIN, SERUM 6.2 g/dL (6.4-8.2)
[2023-02-25] MEDS: AMIODARONE HCL 750 MG in DEXTROSE 5%-WATER 485 ML IV SCH (07:50)
[2023-02-25] MEDS: SERTRALINE HCL 50 MG TABLET PO SCH (08:22)
[2023-02-25] MEDS: CHOLECALCIFEROL (VIT D3) 5,000 [125 MCG] UNITS CAPSULE PO SCH (08:22)
[2023-02-25] MEDS: LORATADINE 10 MG TABLET PO SCH (08:22)
[2023-02-25] MEDS: FLUTICASONE/VILANTEROL 200-25 MCG/INH INHALER [14] IH SCH (08:22)
[2023-02-25] MEDS: FUROSEMIDE 20 MG TABLET PO SCH (08:22)
[2023-02-25] MEDS: ASPIRIN 81 MG DR TABLET PO SCH (08:22)
[2023-02-25] MEDS: MULTIVITAMINS, THERAPEUTIC TABLET PO SCH (08:22)
[2023-02-25] MEDS: MORPHINE SULFATE 2 MG/ML SYRINGE IVP PRN ×2 (13:29→20:50)
[2023-02-25] MEDS: DIGOXIN 250 MCG/ML 2 ML AMP IVP SCH ×2 (17:21→22:47)
[2023-02-25] MEDS ORDERED: AMIODARONE HCL 750 MG in DEXTROSE 5%-WATER 485 ML IV SCH (19:00)
[2023-02-25] MEDS: QUEtiapine FUMARATE 25 MG TABLET PO SCH (20:50)
[2023-02-26] VITALS (7 sets, daily range): BP systolic 114–134; BP diastolic 44–65; PULSE 60–110; RESP 16–19; TEMP 98–98.7
[2023-02-26] MEDS: HEPARIN SODIUM 25000 UNITS/D5W 250 ML IV PRN (01:24)
[2023-02-26] MEDS: DIGOXIN 250 MCG/ML 2 ML AMP IVP SCH ×2 (04:45→10:14)
[2023-02-26] MEDS: LEVOTHYROXINE SODIUM 100 MCG TABLET PO SCH (05:47)
[2023-02-26] MEDS: MULTIVITAMINS, THERAPEUTIC TABLET PO SCH (08:10)
[2023-02-26] MEDS: CHOLECALCIFEROL (VIT D3) 5,000 [125 MCG] UNITS CAPSULE PO SCH (08:11)
[2023-02-26] MEDS: SERTRALINE HCL 50 MG TABLET PO SCH (08:11)
[2023-02-26] MEDS: LORATADINE 10 MG TABLET PO SCH (08:11)
[2023-02-26] MEDS: FUROSEMIDE 20 MG TABLET PO SCH (08:11)
[2023-02-26] MEDS: ASPIRIN 81 MG DR TABLET PO SCH (08:12)
[2023-02-26] MEDS: FLUTICASONE/VILANTEROL 200-25 MCG/INH INHALER [14] IH SCH (08:18)
[2023-02-26] MEDS: AMIODARONE HCL 750 MG in DEXTROSE 5%-WATER 485 ML IV SCH (08:18)
[2023-02-26] MEDS: AMIODARONE HCL 200 MG TABLET PO SCH ×2 (09:37→20:26)
[2023-02-26] MEDS: ACETAMINOPHEN 325 MG TABLET PO PRN ×2 (15:26→23:09)
[2023-02-26] MEDS: MORPHINE SULFATE 2 MG/ML SYRINGE IVP PRN (20:26)
[2023-02-26] MEDS: ATORVASTATIN CALCIUM 40 MG TABLET PO SCH (20:26)
[2023-02-26] MEDS: QUEtiapine FUMARATE 25 MG TABLET PO SCH (20:26)
[2023-02-26] MEDS ORDERED: SODIUM CHLORIDE 0.9% 250 ML IV ONE (20:34)
[2023-02-26] MEDS ORDERED: APIXABAN 2.5 MG TABLET PO SCH (21:00)
[2023-02-26] MEDS ORDERED: CefTRIAXone 1 GM/DEXTROSE 50 ML IV SCH (21:00)
[2023-02-27] MEDS ORDERED: MORPHINE SULFATE 2 MG/ML SYRINGE IVP PRN (01:00)
[2023-02-27 05:00] VITALS: BP 138/45; PULSE 68; RESP 18; TEMP 98.4
[2023-02-27] MEDS: LEVOTHYROXINE SODIUM 100 MCG TABLET PO SCH (06:10)
[2023-02-27 07:44] VITALS: BP 126/47; PULSE 66; RESP 17; TEMP 98.3
[2023-02-27] MEDS: LORATADINE 10 MG TABLET PO SCH (09:12)
[2023-02-27] MEDS: CHOLECALCIFEROL (VIT D3) 5,000 [125 MCG] UNITS CAPSULE PO SCH (09:12)
[2023-02-27] MEDS: MULTIVITAMINS, THERAPEUTIC TABLET PO SCH (09:12)
[2023-02-27] MEDS: SERTRALINE HCL 50 MG TABLET PO SCH (09:12)
[2023-02-27] MEDS: ASPIRIN 81 MG DR TABLET PO SCH (09:13)
[2023-02-27] MEDS: FUROSEMIDE 20 MG TABLET PO SCH (09:14)
[2023-02-27] MEDS: AMIODARONE HCL 200 MG TABLET PO SCH (09:14)
[2023-02-27] MEDS: FLUTICASONE/VILANTEROL 200-25 MCG/INH INHALER [14] IH SCH (09:14)
[2023-02-27] MEDS ORDERED: SENN-338 PO (10:35)
[2023-02-27] MEDS ORDERED: AMIO200T68 PO (10:35)
[2023-02-27] MEDS ORDERED: AMOX1TAB16 PO (10:35)
[2023-02-27] MEDS ORDERED: OXYC-490 PO (10:35)
[2023-02-27 11:48] VITALS: BP 122/80; PULSE 65; RESP 17; TEMP 98.5
[2023-02-27 15:32] VITALS: BP 133/51; PULSE 61; RESP 17; TEMP 98.2
== END 2023-02-27 18:10 | disposition hospice, home (50) | DRG 308 ==
LOC: EMS 23:12 → 5S 02-24 05:36
PROVIDERS: ADMIT Internal Medicine; ATTEND Internal Medicine
DX: I48.20 Chronic atrial fibrillation, unspecified (principal); E43 Unspecified severe protein-calorie malnutrition; N39.0 Urinary tract infection, site not specified; I48.92 Unspecified atrial flutter; E11.22 Type 2 diabetes mellitus with diabetic chronic kidney disease; Z66 Do not resuscitate; I12.9 Hypertensive chronic kidney disease with stage 1 through stage 4 chronic kidney disease, or unspecified chronic kidney disease; E03.9 Hypothyroidism, unspecified; Z96.653 Presence of artificial knee joint, bilateral; N18.9 Chronic kidney disease, unspecified; F17.210 Nicotine dependence, cigarettes, uncomplicated; B96.20 Unspecified Escherichia coli [E. coli] as the cause of diseases classified elsewhere; M25.562 Pain in left knee; F32.A Depression, unspecified; F41.9 Anxiety disorder, unspecified; M19.90 Unspecified osteoarthritis, unspecified site; F03.90 Unspecified dementia, unspecified severity, without behavioral disturbance, psychotic disturbance, mood disturbance, and anxiety; E78.5 Hyperlipidemia, unspecified; W18.39XA Other fall on same level, initial encounter; Y93.89 Activity, other specified; Y92.098 Other place in other non-institutional residence as the place of occurrence of the external cause; Y99.8 Other external cause status; Z86.73 Personal history of transient ischemic attack (TIA), and cerebral infarction without residual deficits; Z90.49 Acquired absence of other specified parts of digestive tract; Z90.710 Acquired absence of both cervix and uterus; Z68.32 Body mass index [BMI] 32.0-32.9, adult; Z79.899 Other long term (current) drug therapy; Z79.82 Long term (current) use of aspirin; Z85.038 Personal history of other malignant neoplasm of large intestine
CPT/HCPCS: 71045; 74177; 80053; 81001; 83690; 83735; 84100; 85025; 85610; 85730; 87040; 87086; 87186; 93005; 99285; J0282; J0696; J1160; J1644; J2270; J2405; J3490; J7030; J7050; J7060; Q9967; 36415-L1; 36415-TC

== ENCOUNTER 2023-03-25 15:59 | Emergency (ER) | payer OTHER ==
[~2023-03-25] VITALS: Ht 162.6 cm; Wt 72.7 kg
[~2023-03-25 15:59] MED LIST changes: +AMIO200T68 PO; +AMOX1TAB16 PO; -DICL100G31 TP; +DICL2100G TP; +OXYC-490 PO; +SENN-338 PO
[2023-03-25] MEDS ORDERED: ACETAMINOPHEN 1000 MG/ISO-OSM 100 ML IV ONE (16:30)
[2023-03-25] MEDS ORDERED: KETOROLAC TROMETHAMINE 30 MG/ML VIAL IVP ONE (16:30)
[2023-03-25] MEDS ORDERED: MORPHINE SULFATE 4 MG/ML SYRINGE IVP ONE (16:30)
[2023-03-25 16:44] LABS: BASOPHILS % (AUTO) 0.5 % (0.0-2.0); EOSINOPHILS % (AUTO) 1.2 % (1.0-6.0); HEMATOCRIT 32.7 % (36-46); HEMOGLOBIN 9.8 g/dL (12.0-16.0); LYMPHOCYTES # (AUTO) 1.7 K/uL (1.0-4.8); LYMPHOCYTES % (AUTO) 17.5 % (22.0-44.0); MEAN CORPUSCULAR HEMOGLOBIN 20.7 pg (26.0-34.0); MEAN CORPUSCULAR HGB CONC 30.1 G/dL (31.0-37.0); MEAN CORPUSCULAR VOLUME 69 fL (80-100); MONOCYTES # (AUTO) 0.6 K/uL (0.1-1.0); MONOCYTES % (AUTO) 6.5 % (2.0-9.0); NEUTROPHILS # (AUTO) 7.2 K/uL (1.8-7.7); NEUTROPHILS % (AUTO) 74.3 % (40.0-70.0); PLATELET COUNT (AUTO) 459 K/uL (150-450); RED BLOOD CELL COUNT(AUTO) 4.74 MIL/uL (4.00-5.20); RED CELL DISTRIBUTION WIDTH 19.8 % (11.5-14.5)
[2023-03-25 16:56] LABS: CALCIUM, TOTAL 9.4 mg/dL (8.8-10.5); CREATININE 1.39 mg/dL (0.60-1.30); MAGNESIUM 2.3 mg/dL (1.80-2.40); POTASSIUM 4.1 mmol/L (3.5-5.1)
[2023-03-25] MEDS ORDERED: ONDANSETRON HCL 4 MG/2 ML VIAL IVP ONE (17:00)
[2023-03-25 18:23] VITALS: BP 125/68; PULSE 89; RESP 16; TEMP 97.9
[2023-03-27] MEDS ORDERED: BUSP10TA23 PO (19:32)
[2023-03-27] MEDS ORDERED: ATEN-73 PO (19:32)
[2023-03-27] MEDS ORDERED: TRAM-559 PO (19:32)
[2023-03-27] MEDS ORDERED: CARV3 PO (19:32)
[2023-03-27] MEDS ORDERED: PANT40TA54 PO (19:50)
[2023-03-27] MEDS ORDERED: NICO-703 TD (19:50)
[2023-03-27] MEDS ORDERED: DICL100G60 TP (19:50)
[2023-03-27] MEDS ORDERED: ALBU18HF12 IH (19:50)
[2023-03-27] MEDS ORDERED: DIGO125T71 PO (19:50)
[2023-03-27] MEDS ORDERED: DOCU100C33 PO (19:50)
== END 2023-03-25 19:04 | disposition home or self-care (01) ==
LOC: EDBD → EMS 16:00
DX: C18.9 Malignant neoplasm of colon, unspecified (principal); I48.92 Unspecified atrial flutter; R10.11 Right upper quadrant pain; R10.31 Right lower quadrant pain
CPT/HCPCS: 99284; 96365; 96375; 80048; 83735; 85025; 36415; 93005; J1885; J2270; J2405; J0131

== ENCOUNTER 2023-04-17 13:45 | Inpatient (IN) | payer MEDICARE, OTHER ==
[~2023-04-17] VITALS: Ht 162.6 cm; Wt 72.5 kg
[~2023-04-17 13:45] MED LIST changes: +ALBU18HF12 IH; -AMIO200T68 PO; -AMOX1TAB16 PO; +BUSP10TA23 PO; +CARV3 PO; +DICL100G60 TP; -DICL2100G TP; +DIGO125T71 PO; +DOCU100C33 PO; +NICO-703 TD; +PANT40TA54 PO; +TRAM-559 PO
[2023-04-17 14:42] LABS: BASOPHILS % (AUTO) 1.4 % (0.0-2.0); EOSINOPHILS % (AUTO) 2.5 % (1.0-6.0); HEMATOCRIT 29.7 % (36-46); HEMOGLOBIN 9.1 g/dL (12.0-16.0); LYMPHOCYTES % (AUTO) 22.8 % (22.0-44.0); MEAN CORPUSCULAR HEMOGLOBIN 21.6 pg (26.0-34.0); MEAN CORPUSCULAR HGB CONC 30.5 G/dL (31.0-37.0); MEAN CORPUSCULAR VOLUME 71 fL (80-100); MONOCYTES # (AUTO) 0.6 K/uL (0.1-1.0); MONOCYTES % (AUTO) 7.1 % (2.0-9.0); NEUTROPHILS # (AUTO) 5.7 K/uL (1.8-7.7); NEUTROPHILS % (AUTO) 66.2 % (40.0-70.0); RED BLOOD CELL COUNT(AUTO) 4.21 MIL/uL (4.00-5.20); RED CELL DISTRIBUTION WIDTH 23.2 % (11.5-14.5); WHITE BLOOD COUNT (AUTO) 8.6 K/uL (4.5-11.0)
[2023-04-17 14:50] LABS: B-TYPE NATRIURETIC PEPTIDE 120 pg/mL (0-100)
[2023-04-17 14:52] LABS: ALANINE AMINOTRANSFERASE 8 U/L (12-78); ALBUMIN 2.1 g/dL (3.4-5.0); ALKALINE PHOSPHATASE 118 U/L (46-116); ANION GAP 11 mmol/L (8-16); ASPARTATE AMINOTRANSFERASE 15 U/L (15-37); BILIRUBIN,TOTAL 0.1 mg/dL (0.1-1.0); CALCIUM, TOTAL 8.8 mg/dL (8.8-10.5); CARBON DIOXIDE 27 mmol/L (22-29); CHLORIDE 102 mmol/L (98-107); CREATININE 0.76 mg/dL (0.60-1.30); GLOMERULAR FILTR. RATE CALC > 60 mL/min (>60); GLUCOSE,RANDOM 107 mg/dL (70-110); LIPASE 131 U/L (16-77); SODIUM SERUM 140 mmol/L (136-145); TOTAL PROTEIN, SERUM 6.3 g/dL (6.4-8.2); UREA NITROGEN, BLOOD 3 mg/dL (7-18)
[2023-04-17 14:54] LABS: TROPONIN I-HIGH SENSITIVITY 12 ng/L (<51)
[2023-04-17 14:56] LABS: LACTIC ACID 2.6 mmol/L (0.4-2.0)
[2023-04-17 15:01] LABS: COVID AG,FIA SOURCE NASOPHARYNGEAL
[2023-04-17 15:04] LABS: RBC MORPHOLOGY COMMENT ABNORMAL RBC MORPH
[2023-04-17 15:07] LABS: PLATELET COUNT (AUTO) 816 K/uL (150-450)
[2023-04-17 15:26] LABS: SARS-COV2 (COVID) ANTIGEN,FIA Negative (Negative)
[2023-04-17] MEDS ORDERED: LORazepam 2 MG/ML VIAL IVP ONE (15:30)
[2023-04-17] MEDS ORDERED: BARIUM SULFATE 0.1% SUSPENSION 450 ML BOTTLE PO ONE (15:45)
[2023-04-17] MEDS ORDERED: IOHEXOL 350 MG/ML 100 ML VIAL ONE (16:07)
[2023-04-17] MEDS ORDERED: SODIUM CHLORIDE 0.9% 100 ML ONE (16:07)
[2023-04-17] MEDS ORDERED: ONDANSETRON HCL 4 MG/2 ML VIAL IVP PRN (21:30)
[2023-04-17] MEDS ORDERED: 0.9% SODIUM CHLORIDE 10 ML SYRINGE IVP PRN (21:30)
[2023-04-17] MEDS ORDERED: POTASSIUM CHL 10 MEQ/WATER 50 ML IV PRN (21:45)
[2023-04-17] MEDS ORDERED: POTASSIUM CHLORIDE 20 MEQ ER TABLET PO PRN (21:45)
[2023-04-17] MEDS ORDERED: VANCOMYCIN HCL 1.5 GM in DEXTROSE 5%-WATER 250 ML IV ONE (22:00)
[2023-04-17] MEDS ORDERED: SODIUM CHLORIDE 0.9% 1,000 ML ONE (22:18)
[2023-04-17] MEDS: ATORVASTATIN CALCIUM 40 MG TABLET PO SCH (22:23)
[2023-04-17] MEDS: MELATONIN 5 MG TABLET PO PRN (22:23)
[2023-04-17] MEDS: OxyCODONE HCL/ACETAMINOPHEN 5-325 MG TABLET PO PRN (22:23)
[2023-04-17] MEDS: CARVEDILOL 3.125 MG TABLET PO SCH (22:23)
[2023-04-17] MEDS: BusPIRone HCL 10 MG TABLET PO SCH (22:24)
[2023-04-17] MEDS: DOCUSATE SODIUM 100 MG CAPSULE PO SCH (22:24)
[2023-04-17] MEDS: HEPARIN SODIUM,PORCINE 5,000 UNITS/ML VIAL SQ SCH (22:24)
[2023-04-18] VITALS: BP 136/56; PULSE 64; RESP 19; TEMP 98.4
[2023-04-18 04:13] VITALS: BP 139/68; PULSE 68; RESP 20; TEMP 98.5
[2023-04-18] MEDS: LEVOTHYROXINE SODIUM 100 MCG TABLET PO SCH (06:48)
[2023-04-18 07:30] VITALS: BP 151/60; PULSE 66; RESP 18; TEMP 97.7
[2023-04-18 07:31] LABS: BASOPHILS % (AUTO) 0.6 % (0.0-2.0); EOSINOPHILS % (AUTO) 1.5 % (1.0-6.0); HEMATOCRIT 28.3 % (36-46); HEMOGLOBIN 8.8 g/dL (12.0-16.0); LYMPHOCYTES % (AUTO) 9.9 % (22.0-44.0); MEAN CORPUSCULAR HEMOGLOBIN 22.1 pg (26.0-34.0); MEAN CORPUSCULAR VOLUME 71 fL (80-100); MONOCYTES # (AUTO) 0.5 K/uL (0.1-1.0); MONOCYTES % (AUTO) 4.6 % (2.0-9.0); NEUTROPHILS # (AUTO) 8.7 K/uL (1.8-7.7); NEUTROPHILS % (AUTO) 83.4 % (40.0-70.0); PLATELET COUNT (AUTO) 711 K/uL (150-450); RED BLOOD CELL COUNT(AUTO) 3.98 MIL/uL (4.00-5.20); RED CELL DISTRIBUTION WIDTH 23.1 % (11.5-14.5); WHITE BLOOD COUNT (AUTO) 10.4 K/uL (4.5-11.0)
[2023-04-18 08:18] LABS: ANION GAP 11 mmol/L (8-16); CALCIUM, TOTAL 8.6 mg/dL (8.8-10.5); CARBON DIOXIDE 27 mmol/L (22-29); CHLORIDE 102 mmol/L (98-107); CREATININE 0.75 mg/dL (0.60-1.30); GLOMERULAR FILTR. RATE CALC > 60 mL/min (>60); GLUCOSE,RANDOM 78 mg/dL (70-110); POTASSIUM 3.5 mmol/L (3.5-5.1); SODIUM SERUM 139 mmol/L (136-145); UREA NITROGEN, BLOOD 5 mg/dL (7-18)
[2023-04-18] MEDS: VANCOMYCIN 1GM/WATER(PEG/NADA) 200 ML IV SCH ×2 (08:28→20:04)
[2023-04-18] MEDS: PANTOPRAZOLE SODIUM 40 MG/VIAL IVP SCH (08:28)
[2023-04-18 08:29] LABS: RBC MORPHOLOGY COMMENT ABNORMAL RBC MORPH
[2023-04-18] MEDS: DIGOXIN 125 MCG TABLET PO SCH (08:29)
[2023-04-18] MEDS: BusPIRone HCL 10 MG TABLET PO SCH ×2 (08:31→20:07)
[2023-04-18] MEDS: ASPIRIN 81 MG DR TABLET PO SCH (08:32)
[2023-04-18] MEDS: CARVEDILOL 3.125 MG TABLET PO SCH ×2 (08:33→20:07)
[2023-04-18] MEDS: HEPARIN SODIUM,PORCINE 5,000 UNITS/ML VIAL SQ SCH ×2 (08:34→20:08)
[2023-04-18] MEDS: FUROSEMIDE 20 MG TABLET PO SCH (08:35)
[2023-04-18] MEDS: DOCUSATE SODIUM 100 MG CAPSULE PO SCH ×2 (08:36→20:07)
[2023-04-18 11:25] VITALS: BP 175/74; PULSE 60; RESP 18; TEMP 98
[2023-04-18 15:06] VITALS: BP 143/56; PULSE 62; RESP 18; TEMP 98.1
[2023-04-18] MEDS: ATORVASTATIN CALCIUM 40 MG TABLET PO SCH (20:07)
[2023-04-18 20:10] VITALS: BP_SYST 132; BP_SYST 164; BP_DIAS 50; BP_DIAS 62; PULSE 70; RESP 18; TEMP 98
[2023-04-19] VITALS (8 sets, daily range): BP systolic 111–178; BP diastolic 50–69; PULSE 57–69; RESP 18–20; TEMP 97.8–98.4
[2023-04-19] MEDS: OxyCODONE HCL/ACETAMINOPHEN 5-325 MG TABLET PO PRN (05:49)
[2023-04-19] MEDS: LEVOTHYROXINE SODIUM 100 MCG TABLET PO SCH (06:12)
[2023-04-19 08:38] LABS: ANION GAP 11 mmol/L (8-16); CALCIUM, TOTAL 8.5 mg/dL (8.8-10.5); CARBON DIOXIDE 26 mmol/L (22-29); CHLORIDE 102 mmol/L (98-107); CREATININE 0.73 mg/dL (0.60-1.30); GLOMERULAR FILTR. RATE CALC > 60 mL/min (>60); GLUCOSE,RANDOM 83 mg/dL (70-110); POTASSIUM 3.6 mmol/L (3.5-5.1); SODIUM SERUM 139 mmol/L (136-145); UREA NITROGEN, BLOOD 6 mg/dL (7-18)
[2023-04-19 08:51] LABS: VANCOMYCIN,RANDOM 23.4 mcg/mL (25.0-50.0)
[2023-04-19] MEDS: DOCUSATE SODIUM 100 MG CAPSULE PO SCH ×2 (09:00→20:43)
[2023-04-19] MEDS: CARVEDILOL 3.125 MG TABLET PO SCH ×2 (09:00→20:43)
[2023-04-19] MEDS: DIGOXIN 125 MCG TABLET PO SCH (09:00)
[2023-04-19] MEDS: FUROSEMIDE 20 MG TABLET PO SCH (09:11)
[2023-04-19] MEDS: HEPARIN SODIUM,PORCINE 5,000 UNITS/ML VIAL SQ SCH ×2 (09:11→20:42)
[2023-04-19] MEDS: PANTOPRAZOLE SODIUM 40 MG/VIAL IVP SCH (09:12)
[2023-04-19] MEDS: ASPIRIN 81 MG DR TABLET PO SCH (09:12)
[2023-04-19] MEDS: BusPIRone HCL 10 MG TABLET PO SCH ×2 (09:12→20:42)
[2023-04-19] MEDS: VANCOMYCIN 1GM/WATER(PEG/NADA) 200 ML IV SCH ×2 (09:14→20:36)
[2023-04-19] MEDS: ATORVASTATIN CALCIUM 40 MG TABLET PO SCH (20:43)
[2023-04-20 03:48] VITALS: BP 151/54; PULSE 65; RESP 20; TEMP 98.2
[2023-04-20] MEDS: LEVOTHYROXINE SODIUM 100 MCG TABLET PO SCH (06:35)
[2023-04-20 07:04] LABS: ANION GAP 11 mmol/L (8-16); CALCIUM, TOTAL 8.5 mg/dL (8.8-10.5); CARBON DIOXIDE 26 mmol/L (22-29); CHLORIDE 101 mmol/L (98-107); CREATININE 0.87 mg/dL (0.60-1.30); GLOMERULAR FILTR. RATE CALC > 60 mL/min (>60); GLUCOSE,RANDOM 107 mg/dL (70-110); POTASSIUM 3.5 mmol/L (3.5-5.1); SODIUM SERUM 138 mmol/L (136-145); UREA NITROGEN, BLOOD 8 mg/dL (7-18)
[2023-04-20 07:47] VITALS: BP 153/70; PULSE 62; RESP 18; TEMP 98
[2023-04-20] MEDS: VANCOMYCIN 1GM/WATER(PEG/NADA) 200 ML IV SCH ×2 (08:51→20:17)
[2023-04-20] MEDS: BusPIRone HCL 10 MG TABLET PO SCH ×2 (08:51→20:17)
[2023-04-20] MEDS: DOCUSATE SODIUM 100 MG CAPSULE PO SCH ×2 (08:51→20:17)
[2023-04-20] MEDS: PANTOPRAZOLE SODIUM 40 MG/VIAL IVP SCH (08:51)
[2023-04-20] MEDS: ASPIRIN 81 MG DR TABLET PO SCH (08:52)
[2023-04-20] MEDS: CARVEDILOL 3.125 MG TABLET PO SCH ×2 (08:52→20:24)
[2023-04-20] MEDS: FUROSEMIDE 20 MG TABLET PO SCH (08:53)
[2023-04-20] MEDS: DIGOXIN 125 MCG TABLET PO SCH (08:53)
[2023-04-20] MEDS: HEPARIN SODIUM,PORCINE 5,000 UNITS/ML VIAL SQ SCH ×2 (08:53→20:17)
[2023-04-20 11:50] VITALS: BP 129/55; PULSE 70; RESP 20; TEMP 97.7
[2023-04-20] MEDS: PIPERACILLIN/TAZO 3.375 GM/D5W 50 ML IV SCH ×2 (16:01→22:23)
[2023-04-20 16:02] VITALS: BP 153/70; PULSE 65; RESP 18; TEMP 98.2
[2023-04-20 19:22] VITALS: BP 123/44; PULSE 64; RESP 19; TEMP 97.8
[2023-04-20] MEDS: ATORVASTATIN CALCIUM 40 MG TABLET PO SCH (20:17)
[2023-04-20] MEDS: MELATONIN 5 MG TABLET PO PRN (21:17)
[2023-04-21 00:57] VITALS: BP 124/59; PULSE 84; RESP 19; TEMP 97.9
[2023-04-21] MEDS ORDERED: SODIUM CHLORIDE 0.9% 250 ML IV ONE ×2 (03:12→14:40)
[2023-04-21] MEDS: OxyCODONE HCL/ACETAMINOPHEN 5-325 MG TABLET PO PRN ×2 (03:16→23:18)
[2023-04-21] MEDS: PIPERACILLIN/TAZO 3.375 GM/D5W 50 ML IV SCH ×2 (03:17→09:11)
[2023-04-21 06:05] VITALS: BP 148/69; PULSE 63; RESP 20; TEMP 97.4
[2023-04-21] MEDS: LEVOTHYROXINE SODIUM 100 MCG TABLET PO SCH (06:09)
[2023-04-21 06:50] LABS: BASOPHILS % (AUTO) 0.5 % (0.0-2.0); HEMATOCRIT 27.3 % (36-46); HEMOGLOBIN 8.3 g/dL (12.0-16.0); LYMPHOCYTES # (AUTO) 1.6 K/uL (1.0-4.8); LYMPHOCYTES % (AUTO) 19.3 % (22.0-44.0); MEAN CORPUSCULAR HEMOGLOBIN 21.6 pg (26.0-34.0); MEAN CORPUSCULAR HGB CONC 30.4 G/dL (31.0-37.0); MEAN CORPUSCULAR VOLUME 71 fL (80-100); MONOCYTES # (AUTO) 0.7 K/uL (0.1-1.0); MONOCYTES % (AUTO) 8.4 % (2.0-9.0); NEUTROPHILS # (AUTO) 5.6 K/uL (1.8-7.7); NEUTROPHILS % (AUTO) 67.8 % (40.0-70.0); PLATELET COUNT (AUTO) 448 K/uL (150-450); RED BLOOD CELL COUNT(AUTO) 3.84 MIL/uL (4.00-5.20); RED CELL DISTRIBUTION WIDTH 22.6 % (11.5-14.5); WHITE BLOOD COUNT (AUTO) 8.2 K/uL (4.5-11.0)
[2023-04-21 06:58] LABS: RBC MORPHOLOGY COMMENT ABNORMAL RBC MORPH
[2023-04-21 07:17] LABS: CALCIUM, TOTAL 7.9 mg/dL (8.8-10.5); CREATININE 0.91 mg/dL (0.60-1.30); POTASSIUM 3.1 mmol/L (3.5-5.1); VANCOMYCIN,RANDOM 30.8 mcg/mL (25.0-50.0)
[2023-04-21 08:55] VITALS: BP 141/51; PULSE 65; RESP 16; TEMP 97.9
[2023-04-21] MEDS: DOCUSATE SODIUM 100 MG CAPSULE PO SCH ×2 (09:00→20:11)
[2023-04-21] MEDS: DIGOXIN 125 MCG TABLET PO SCH (09:10)
[2023-04-21] MEDS: FUROSEMIDE 20 MG TABLET PO SCH (09:10)
[2023-04-21] MEDS: CARVEDILOL 3.125 MG TABLET PO SCH ×2 (09:10→20:11)
[2023-04-21] MEDS: BusPIRone HCL 10 MG TABLET PO SCH ×2 (09:10→20:11)
[2023-04-21] MEDS: ASPIRIN 81 MG DR TABLET PO SCH (09:10)
[2023-04-21] MEDS: HEPARIN SODIUM,PORCINE 5,000 UNITS/ML VIAL SQ SCH ×2 (09:11→20:11)
[2023-04-21] MEDS: PANTOPRAZOLE SODIUM 40 MG/VIAL IVP SCH (09:11)
[2023-04-21] MEDS ORDERED: POTASSIUM CHLORIDE 20 MEQ ER TABLET PO PRN (10:45)
[2023-04-21] MEDS ORDERED: POTASSIUM CHL 10 MEQ/WATER 50 ML IV PRN ×2 (10:45→11:00)
[2023-04-21] MEDS: POTASSIUM CHLORIDE 20 MEQ ER TABLET PO PRN (11:05)
[2023-04-21] MEDS ORDERED: LEVOFLOXACIN 750 MG TABLET PO SCH (11:15)
[2023-04-21] MEDS ORDERED: *CLINICAL-MEROPENEM DOSING CLINICAL ONE (11:15)
[2023-04-21] MEDS: MEROPENEM 1 GM in SODIUM CHLORIDE 0.9% 100 ML IV SCH (14:57)
[2023-04-21 15:43] VITALS: BP 144/50; PULSE 58; RESP 18; TEMP 97.6
[2023-04-21] MEDS ORDERED: MetroNIDAZOLE 500 MG TABLET PO SCH (16:00)
[2023-04-21] MEDS: CASPOFUNGIN ACETATE 70 MG in SODIUM CHLORIDE 0.9% 250 ML IV ONE ×2 (17:35→17:53)
[2023-04-21 19:58] VITALS: BP 115/48; PULSE 60; RESP 18; TEMP 97.7
[2023-04-21] MEDS ORDERED: VANCOMYCIN HCL 500 MG in DEXTROSE 5%-WATER 100 ML IV SCH (20:00)
[2023-04-21] MEDS: ATORVASTATIN CALCIUM 40 MG TABLET PO SCH (20:11)
[2023-04-21] MEDS: MELATONIN 5 MG TABLET PO PRN (23:18)
[2023-04-22] MEDS: MEROPENEM 1 GM in SODIUM CHLORIDE 0.9% 100 ML IV SCH ×2 (02:44→13:17)
[2023-04-22] MEDS ORDERED: SODIUM CHLORIDE 0.9% 250 ML IV ONE (02:46)
[2023-04-22 05:11] VITALS: BP 127/53; PULSE 60; RESP 18; TEMP 98.2
[2023-04-22] MEDS: LEVOTHYROXINE SODIUM 100 MCG TABLET PO SCH (05:41)
[2023-04-22 07:10] LABS: ANION GAP 15 mmol/L (8-16); CARBON DIOXIDE 25 mmol/L (22-29); CHLORIDE 102 mmol/L (98-107); CREATININE 0.81 mg/dL (0.60-1.30); GLOMERULAR FILTR. RATE CALC > 60 mL/min (>60); GLUCOSE,RANDOM 95 mg/dL (70-110); POTASSIUM 3.4 mmol/L (3.5-5.1); SODIUM SERUM 142 mmol/L (136-145); UREA NITROGEN, BLOOD 6 mg/dL (7-18)
[2023-04-22 07:32] VITALS: BP 155/63; PULSE 65; RESP 18; TEMP 98.1
[2023-04-22] MEDS: DIGOXIN 125 MCG TABLET PO SCH (08:57)
[2023-04-22] MEDS: ASPIRIN 81 MG DR TABLET PO SCH (08:58)
[2023-04-22] MEDS: HEPARIN SODIUM,PORCINE 5,000 UNITS/ML VIAL SQ SCH ×2 (08:58→19:51)
[2023-04-22] MEDS: BusPIRone HCL 10 MG TABLET PO SCH ×2 (08:58→19:51)
[2023-04-22] MEDS: FUROSEMIDE 20 MG TABLET PO SCH (08:58)
[2023-04-22] MEDS: CARVEDILOL 3.125 MG TABLET PO SCH ×2 (08:58→19:53)
[2023-04-22] MEDS: DOCUSATE SODIUM 100 MG CAPSULE PO SCH ×2 (08:58→19:51)
[2023-04-22] MEDS: PANTOPRAZOLE SODIUM 40 MG/VIAL IVP SCH (08:58)
[2023-04-22] MEDS: POTASSIUM CHLORIDE 20 MEQ ER TABLET PO PRN (13:16)
[2023-04-22 15:00] VITALS: BP 146/44; PULSE 66; RESP 18; TEMP 98.6
[2023-04-22 19:22] VITALS: BP 142/54; PULSE 64; RESP 20; TEMP 98.2
[2023-04-22] MEDS: ATORVASTATIN CALCIUM 40 MG TABLET PO SCH (19:51)
[2023-04-22] MEDS: MELATONIN 5 MG TABLET PO PRN (22:30)
[2023-04-22] MEDS: OxyCODONE HCL/ACETAMINOPHEN 5-325 MG TABLET PO PRN (22:30)
[2023-04-23] MEDS: MEROPENEM 1 GM in SODIUM CHLORIDE 0.9% 100 ML IV SCH ×2 (01:40→13:23)
[2023-04-23 04:40] VITALS: BP 130/53; PULSE 60; RESP 18; TEMP 97.6
[2023-04-23] MEDS: LEVOTHYROXINE SODIUM 100 MCG TABLET PO SCH (06:04)
[2023-04-23 06:46] LABS: ANION GAP 8 mmol/L (8-16); CALCIUM, TOTAL 8.6 mg/dL (8.8-10.5); CARBON DIOXIDE 27 mmol/L (22-29); CHLORIDE 101 mmol/L (98-107); CREATININE 0.79 mg/dL (0.60-1.30); GLOMERULAR FILTR. RATE CALC > 60 mL/min (>60); GLUCOSE,RANDOM 142 mg/dL (70-110); POTASSIUM 4.1 mmol/L (3.5-5.1); SODIUM SERUM 136 mmol/L (136-145); UREA NITROGEN, BLOOD 7 mg/dL (7-18)
[2023-04-23 09:00] VITALS: BP 152/68; PULSE 64; RESP 18; TEMP 98.5
[2023-04-23] MEDS: PANTOPRAZOLE SODIUM 40 MG/VIAL IVP SCH (09:29)
[2023-04-23] MEDS: HEPARIN SODIUM,PORCINE 5,000 UNITS/ML VIAL SQ SCH ×3 (09:29→20:12)
[2023-04-23] MEDS: DOCUSATE SODIUM 100 MG CAPSULE PO SCH ×2 (09:30→20:06)
[2023-04-23] MEDS: BusPIRone HCL 10 MG TABLET PO SCH ×2 (09:30→20:08)
[2023-04-23] MEDS: FUROSEMIDE 20 MG TABLET PO SCH (09:32)
[2023-04-23] MEDS: CARVEDILOL 3.125 MG TABLET PO SCH ×2 (09:32→20:06)
[2023-04-23] MEDS: DIGOXIN 125 MCG TABLET PO SCH (09:34)
[2023-04-23] MEDS: ASPIRIN 81 MG DR TABLET PO SCH (09:43)
[2023-04-23 15:00] VITALS: BP 134/43; PULSE 66; RESP 18; TEMP 98.9
[2023-04-23] MEDS: CASPOFUNGIN ACETATE 50 MG in SODIUM CHLORIDE 0.9% 250 ML IV SCH (18:11)
[2023-04-23] MEDS: ATORVASTATIN CALCIUM 40 MG TABLET PO SCH (20:06)
[2023-04-23] MEDS: MELATONIN 5 MG TABLET PO PRN (20:15)
[2023-04-23 20:25] VITALS: BP 150/56; PULSE 64; RESP 20; TEMP 97.7
[2023-04-23] MEDS: OxyCODONE HCL/ACETAMINOPHEN 5-325 MG TABLET PO PRN (21:53)
[2023-04-24] MEDS: MEROPENEM 1 GM in SODIUM CHLORIDE 0.9% 100 ML IV SCH ×2 (01:40→15:20)
[2023-04-24 04:16] VITALS: BP 156/56; PULSE 62; RESP 20; TEMP 98.8
[2023-04-24] MEDS: LEVOTHYROXINE SODIUM 100 MCG TABLET PO SCH (05:24)
[2023-04-24 06:56] LABS: ANION GAP 7 mmol/L (8-16); CALCIUM, TOTAL 8.4 mg/dL (8.8-10.5); CARBON DIOXIDE 29 mmol/L (22-29); CHLORIDE 100 mmol/L (98-107); CREATININE 0.77 mg/dL (0.60-1.30); GLOMERULAR FILTR. RATE CALC > 60 mL/min (>60); GLUCOSE,RANDOM 107 mg/dL (70-110); POTASSIUM 3.7 mmol/L (3.5-5.1); SODIUM SERUM 135 mmol/L (136-145); UREA NITROGEN, BLOOD 6 mg/dL (7-18)
[2023-04-24] MEDS: PANTOPRAZOLE SODIUM 40 MG/VIAL IVP SCH (07:38)
[2023-04-24 08:00] VITALS: BP 165/57; PULSE 62; RESP 18; TEMP 98.8
[2023-04-24] MEDS: BusPIRone HCL 10 MG TABLET PO SCH ×2 (08:12→20:30)
[2023-04-24] MEDS: FUROSEMIDE 20 MG TABLET PO SCH (08:12)
[2023-04-24] MEDS: DOCUSATE SODIUM 100 MG CAPSULE PO SCH ×2 (08:13→20:30)
[2023-04-24] MEDS: ASPIRIN 81 MG DR TABLET PO SCH (08:13)
[2023-04-24] MEDS: CARVEDILOL 3.125 MG TABLET PO SCH ×2 (08:13→20:30)
[2023-04-24] MEDS: HEPARIN SODIUM,PORCINE 5,000 UNITS/ML VIAL SQ SCH ×2 (08:13→20:31)
[2023-04-24] MEDS: DIGOXIN 125 MCG TABLET PO SCH (08:13)
[2023-04-24] MEDS: OxyCODONE HCL/ACETAMINOPHEN 5-325 MG TABLET PO PRN ×3 (08:25→21:35)
[2023-04-24] MEDS ORDERED: SODIUM CHLORIDE 0.9% 1,000 ML ONE (15:23)
[2023-04-24] MEDS: CASPOFUNGIN ACETATE 50 MG in SODIUM CHLORIDE 0.9% 250 ML IV SCH (18:01)
[2023-04-24 20:04] VITALS: BP 163/64; PULSE 64; RESP 20; TEMP 98.8
[2023-04-24] MEDS: ATORVASTATIN CALCIUM 40 MG TABLET PO SCH (20:31)
[2023-04-24] MEDS: MELATONIN 5 MG TABLET PO PRN (21:42)
[2023-04-25] MEDS: MEROPENEM 1 GM in SODIUM CHLORIDE 0.9% 100 ML IV SCH ×2 (01:45→14:15)
[2023-04-25 04:48] VITALS: BP 135/67; PULSE 65; RESP 18; TEMP 98
[2023-04-25] MEDS: LEVOTHYROXINE SODIUM 100 MCG TABLET PO SCH (06:46)
[2023-04-25] MEDS: HEPARIN SODIUM,PORCINE 5,000 UNITS/ML VIAL SQ SCH ×2 (08:18→20:00)
[2023-04-25] MEDS: PANTOPRAZOLE SODIUM 40 MG/VIAL IVP SCH (08:18)
[2023-04-25] MEDS: DIGOXIN 125 MCG TABLET PO SCH (08:18)
[2023-04-25] MEDS: FUROSEMIDE 20 MG TABLET PO SCH (08:18)
[2023-04-25] MEDS: ASPIRIN 81 MG DR TABLET PO SCH (08:18)
[2023-04-25] MEDS: BusPIRone HCL 10 MG TABLET PO SCH ×2 (08:18→19:59)
[2023-04-25] MEDS: DOCUSATE SODIUM 100 MG CAPSULE PO SCH ×2 (08:18→19:59)
[2023-04-25] MEDS: CARVEDILOL 3.125 MG TABLET PO SCH ×2 (08:18→19:59)
[2023-04-25 12:00] VITALS: BP 104/78; PULSE 65; RESP 18; TEMP 98.5
[2023-04-25] MEDS: CASPOFUNGIN ACETATE 50 MG in SODIUM CHLORIDE 0.9% 250 ML IV SCH (18:22)
[2023-04-25 19:38] VITALS: BP 128/58; PULSE 61; RESP 18; TEMP 99.2
[2023-04-25] MEDS: ATORVASTATIN CALCIUM 40 MG TABLET PO SCH (19:58)
[2023-04-25] MEDS: MELATONIN 5 MG TABLET PO PRN (21:09)
[2023-04-26] MEDS: MEROPENEM 1 GM in SODIUM CHLORIDE 0.9% 100 ML IV SCH ×2 (01:58→14:07)
[2023-04-26 05:35] VITALS: BP 141/63; PULSE 67; RESP 18; TEMP 98.1
[2023-04-26] MEDS: LEVOTHYROXINE SODIUM 100 MCG TABLET PO SCH (05:59)
[2023-04-26 07:42] VITALS: BP 135/65; PULSE 69; RESP 19; TEMP 98.8
[2023-04-26 08:30] VITALS: PULSE 72
[2023-04-26] MEDS: HEPARIN SODIUM,PORCINE 5,000 UNITS/ML VIAL SQ SCH (09:14)
[2023-04-26] MEDS: PANTOPRAZOLE SODIUM 40 MG/VIAL IVP SCH (09:14)
[2023-04-26] MEDS: DOCUSATE SODIUM 100 MG CAPSULE PO SCH (09:19)
[2023-04-26] MEDS: FUROSEMIDE 20 MG TABLET PO SCH (09:19)
[2023-04-26] MEDS: ASPIRIN 81 MG DR TABLET PO SCH (09:20)
[2023-04-26] MEDS: DIGOXIN 125 MCG TABLET PO SCH (09:20)
[2023-04-26] MEDS: CARVEDILOL 3.125 MG TABLET PO SCH (09:20)
[2023-04-26] MEDS: BusPIRone HCL 10 MG TABLET PO SCH (09:20)
[2023-04-26] MEDS ORDERED: SODIUM CHLORIDE 0.9% 500 ML IV ONE (14:04)
[2023-04-26 14:41] VITALS: BP 130/61; PULSE 75; RESP 19; TEMP 99.9
[2023-04-26] MEDS ORDERED: ONDANSETRON HCL 4 MG/2 ML VIAL IVP PRN (15:30)
[2023-04-26] MEDS ORDERED: ACETAMINOPHEN 325 MG TABLET PO PRN (15:30)
[2023-04-26 16:22] VITALS: BP 149/60; PULSE 71; RESP 19; TEMP 98.7
[2023-04-26] MEDS: CASPOFUNGIN ACETATE 50 MG in SODIUM CHLORIDE 0.9% 250 ML IV SCH (16:59)
== END 2023-04-26 19:07 | DRG 862 ==
LOC: EMS 13:53 → 5S 21:51 → 6S 04-21 11:27
PROVIDERS: ADMIT Internal Medicine; ATTEND Internal Medicine
PROC: 05HB33Z Insertion of Infusion Device into Right Basilic Vein, Percutaneous Approach (ICD-10-PCS; principal; 2023-04-25)
PROC: B54MZZA Ultrasonography of Right Upper Extremity Veins, Guidance (ICD-10-PCS; 2023-04-25)
DX: T81.49XA Infection following a procedure, other surgical site, initial encounter (principal); E43 Unspecified severe protein-calorie malnutrition; L03.311 Cellulitis of abdominal wall; E87.20 Acidosis, unspecified; I48.20 Chronic atrial fibrillation, unspecified; I48.92 Unspecified atrial flutter; T81.31XA Disruption of external operation (surgical) wound, not elsewhere classified, initial encounter; J44.9 Chronic obstructive pulmonary disease, unspecified; E03.9 Hypothyroidism, unspecified; E11.22 Type 2 diabetes mellitus with diabetic chronic kidney disease; J98.2 Interstitial emphysema; E87.6 Hypokalemia; F32.A Depression, unspecified; Z20.822 Contact with and (suspected) exposure to COVID-19; F41.9 Anxiety disorder, unspecified; M19.90 Unspecified osteoarthritis, unspecified site; F03.90 Unspecified dementia, unspecified severity, without behavioral disturbance, psychotic disturbance, mood disturbance, and anxiety; I12.9 Hypertensive chronic kidney disease with stage 1 through stage 4 chronic kidney disease, or unspecified chronic kidney disease; Y83.6 Removal of other organ (partial) (total) as the cause of abnormal reaction of the patient, or of later complication, without mention of misadventure at the time of the procedure; N18.30 Chronic kidney disease, stage 3 unspecified; Z86.73 Personal history of transient ischemic attack (TIA), and cerebral infarction without residual deficits; Z68.27 Body mass index [BMI] 27.0-27.9, adult; Z85.038 Personal history of other malignant neoplasm of large intestine; Z90.49 Acquired absence of other specified parts of digestive tract; Z90.710 Acquired absence of both cervix and uterus; Z79.899 Other long term (current) drug therapy; Z87.440 Personal history of urinary (tract) infections; Y92.89 Other specified places as the place of occurrence of the external cause
CPT/HCPCS: 36245; 36569; 71045; 74177; 76937; 80048; 80053; 80202; 83605; 83690; 83880; 84132; 84484; 85025; 87040; 87070; 87081; 87186; 87205; 87481; 92610; 93005; 99291; C9113; G0378; J0637; J1644; J2060; J2185; J2405; J2543; J3370; J7030; J7040; J7050; J7060; Q9967; 36415-L1; 36415-TC